=== PATIENT | male | born 1950 | race Caucasian/White ===

== ENCOUNTER 2016-09-24 07:38 | Day surgery (SDC) | payer MEDICARE, BC ==
[2016-09-24] MEDS ORDERED: Sodium Chloride 0.9% 10 ML Syringe FLUSH PRN (07:45)
[2016-09-24] MEDS ORDERED: Lactated Ringers 1,000 ML IV SCH (07:45)
[2016-09-24] MEDS ORDERED: Propofol 200 MG/20 ML SDV IV ONE (09:00)
[2016-09-24] MEDS ORDERED: Midazolam 1 MG/ML 2 ML SDV IV ONE (09:00)
[2016-09-24] MEDS ORDERED: Simethicone Drops 40 MG/0.6 ML 30 ML Bottle ONE (09:29)
--- NOTE | 2016-09-24 10:00 | PCM.OPNOTE ---
- General Post-Op/Procedure Note Date of Surgery/Procedure: 09/24/16 Operative Procedure(s): c scope with bx Findings: transverse colon polyp descending colon polyp x3 sigmoid polyp diverticulosis Pre Op Diagnosis: screening Post-Op Diagnosis: transverse colon polyp. descending colon polyp x3. sigmoid polyp. diverticulosis Anesthesia Technique: MAC Primary Surgeon: Karsten Wihte Anesthesia Provider: Magalis Stone Pathology: transverse colon polyp descending colon polyp x3 sigmoid polyp Complications: None Condition: Good Free Text/Narrative:: see dictation
[2016-09-24 11:23] VITALS: BP 107/67
--- NOTE | 2016-09-24 22:41 | OR ---
DATE OF OPERATION: 09/24/2016 SURGEON: Karsten White MD PROCEDURE PERFORMED: Colonoscopy with hot loop and cold forceps biopsy. PREOPERATIVE DIAGNOSIS: Screening colonoscopy for colon cancer. POSTOPERATIVE DIAGNOSES: As follows; Sigmoid diverticulosis and descending colon diverticulosis, mild proximal transverse colon polyp, descending colon polyp x3, and sigmoid colon polyp. INDICATIONS FOR PROCEDURE: This is a 66-year-old white male, who presents for screening colonoscopy. He was offered and accepted same. DESCRIPTION OF OPERATION: After an excellent IV sedation was administered, digital rectal exam was performed. No marked abnormality was noted. The flexible colonoscope was inserted and advanced to the cecum. The prep was marginal. We were able to irrigate most of the liquid bile stained area, but this in addition to colonic spasm did hinder the evaluation. Following findings were noted. The ascending colon appeared unremarkable. Transverse colon and the proximal transverse colon, a pedunculated polyp biopsied with a hot loop snare and retrieved. Descending colon, three small polypoid lesions were noted within 10 cm of each other, they were biopsied with cold loop snare and submitted in a single container. There were also occasional diverticula. Sigmoid colon, a small polyp biopsied with cold forceps biopsy and submitted for examination. There were also occasional diverticula. Rectum, unremarkable. The colon was deflated. The scope was removed. The patient tolerated the procedure well and was taken to recovery room in good condition. /[id number] /MODL
== END 2016-09-24 11:06 | disposition home or self-care (01) ==
LOC: FB.SDS 07:38
PROVIDERS: ATTEND Surgery
DX: Z12.11 Encounter for screening for malignant neoplasm of colon (principal); D12.3 Benign neoplasm of transverse colon; D12.4 Benign neoplasm of descending colon; D12.5 Benign neoplasm of sigmoid colon; K57.30 Diverticulosis of large intestine without perforation or abscess without bleeding; E11.22 Type 2 diabetes mellitus with diabetic chronic kidney disease; I12.9 Hypertensive chronic kidney disease with stage 1 through stage 4 chronic kidney disease, or unspecified chronic kidney disease; N18.9 Chronic kidney disease, unspecified; E66.9 Obesity, unspecified; Z98.890 Other specified postprocedural states; Z87.891 Personal history of nicotine dependence; Z79.84 Long term (current) use of oral hypoglycemic drugs; Z79.899 Other long term (current) drug therapy; Z79.82 Long term (current) use of aspirin; Z98.52 Vasectomy status; Z68.42 Body mass index [BMI] 45.0-49.9, adult
CPT/HCPCS: 00810; 45380; 45385; 82962; 88305; A9270; J2250; J2704; J7120

== ENCOUNTER 2016-12-22 12:35 | Emergency (ER) | payer MEDICARE, BC ==
[2016-12-22 12:53] VITALS: BP 160/93
--- NOTE | 2016-12-22 13:17 | EDM.PDOC ---
ED HPI GENERAL MEDICAL PROBLEM - General Chief Complaint: Respiratory Problem Stated Complaint: SOB Time Seen by Provider: 12/22/16 13:00 Source of Information: Reports: Patient History Limitations: Reports: No Limitations - History of Present Illness INITIAL COMMENTS - FREE TEXT/NARRATIVE: Fransisco comes to [facility] ED with a 2 mos hx of gradual 16# weight gain, some apparent swelling in R leg, and concerns for a possible DVT of the R leg. He reports no hx of chest pain, jagjit SOB, SALAS, PND or PNA. He takes Metformin for Type II DM, and other meds for hyperuricemia. He also has a PMH of BRB from wiping post BMs, and was investigated at the Clinic including colonoscopy, hemorrhoids suspected. He desires plane travel later this afternoon. - Related Data Allergies Allergy/AdvReac Type Severity Reaction Status Date / Time No Known Allergies Allergy Verified 12/22/16 12:49 Home Meds: Home Meds Allopurinol [Zyloprim] 300 mg PO DAILY 11/07/15 [History] Aspirin 325 mg PO DAILY 11/07/15 [History] Chlorthalidone 50 mg PO DAILY 11/07/15 [History] Cyclobenzaprine [Flexeril] 10 mg PO TID PRN 11/07/15 [History] Hydrocodone/Acetaminophen [Hydrocodon-Acetaminophen 5-325] 1 - 2 tab PO Q6H PRN 11/07/15 [History] Lisinopril 20 mg PO DAILY 11/07/15 [History] Lovastatin 20 mg PO BEDTIME 11/07/15 [History] Tamsulosin [Flomax] 0.4 mg PO BEDTIME 11/07/15 [History] metFORMIN [Glucophage] 1,000 mg PO BIDMEALS 11/07/15 [History] Dapagliflozin Propanediol [Farxiga] 10 mg PO DAILY 09/23/16 [History] Past Medical History HEENT History: Reports: Other (See Below) Other HEENT History: TINNITUS BILAT EARS Cardiovascular History: Reports: Hypertension Respiratory History: Reports: None Gastrointestinal History: Reports: Diverticulosis Genitourinary History: Reports: Renal Calculus, Renal Disease, Other (See Below) Other Genitourinary History: GROSS HEMATURIA; INFLAMMATION OF [employer] History: Reports: None Musculoskeletal History: Reports: Back Pain, Chronic, Gout, Other (See Below) Other Musculoskeletal History: GREATER TROCHANTERIC BURSITIS-RIGHT HIP; DJD Neurological History: Reports: Neuropathy, Peripheral Psychiatric History: Reports: None Endocrine/Metabolic History: Reports: Diabetes, Type II, Obesity/BMI 30+ Hematologic History: Reports: Anemia Immunologic History: Reports: None Oncologic (Cancer) History: Reports: None Dermatologic History: Reports: Cellulitis, Eczema - Infectious Disease History Infectious Disease History: Reports: Chicken Pox, Measles, Mumps - Past Surgical History Head Surgeries/Procedures: Reports: None HEENT Surgical History: Reports: Adenoidectomy, Tonsillectomy GI Surgical History: Reports: Colonoscopy, Other (See Below) Other GI Surgeries/Procedures: FISSURECTOMY WO SPHINCTEROTOMY Male Surgical History: Reports: Renal Calculus, TURBT-Transurethral Resection of Bladder Tumor, Vasectomy Neurological Surgical History: Reports: Other (See Below) Other Neurological Surgeries/Procedures: BACK SURGERY; SPINE SURGERY-HERNIATED DISC Social & Family History - Family History HEENT: Reports: Cataract Cardiac: Reports: [place] OBGYN: Reports: Musculoskeletal: Reports: Arthritis Neurological: Reports: Dementia Endocrine/Metabolic: Reports: Diabetes, type II, Hypothyroidism Dermatologic: Reports: None Oncologic: Reports: Bone, Breast, Colon, Hodgkin's Lymphoma, Lung - Tobacco Use Smoking Status *Q: Former Smoker Used Tobacco, but Quit: Yes Month Tobacco Last Used: quit 8 years ago - Caffeine Use Caffeine Use: Reports: Coffee, Soda - Recreational Drug Use Recreational Drug Use: No Drug Use in Last 12 Months: No ED ROS GENERAL - Review of Systems Review Of Systems: See Below Constitutional: Reports: Weight Gain (16#) HEENT: Reports: No Symptoms Respiratory: Reports: No Symptoms Cardiovascular: Reports: No Symptoms Endocrine: Reports: No Symptoms GI/Abdominal: Reports: Hematochezia : Reports: Other (nocturia x 3) Musculoskeletal: Reports: Back Pain (chronic) Skin: Reports: Other (edema R>L) Neurological: Reports: No Symptoms Psychiatric: Reports: No Symptoms Hematologic/Lymphatic: Reports: Anemia Immunologic: Reports: No Symptoms ED EXAM, GENERAL - Physical Exam Exam: See Below Exam Limited By: No Limitations General Appearance: Alert, WD/WN, No Apparent Distress, Obese Eye Exam: Bilateral Eye: Normal Inspection, PERRL Ears: Normal External Exam Nose: Normal Inspection Throat/Mouth: Normal Inspection, Normal Oropharynx Head: Normocephalic Neck: Normal Inspection, Supple, Non-Tender Respiratory/Chest: No Respiratory Distress, Lungs Clear, Normal Breath Sounds, No Accessory Muscle Use, Chest Non-Tender Cardiovascular: Regular Rate, Rhythm, Other (edema brawny R leg, 2+ L lower foot and ankle) GI/Abdominal: Normal Bowel Sounds, Soft, Non-Tender, No Organomegaly, No Distention, No Abnormal Bruit, No Mass (Male) Exam: No Hernia, Normal Inspection Back Exam: Normal Inspection Extremities: Pedal Edema, Redness (mild reddness R lower leg) Neurological: Alert, Oriented, CN II-XII Intact, Normal Cognition Psychiatric: Normal Affect, Normal Mood Skin Exam: Warm, Dry, Erythema (mild overlying R lower leg) Lymphatic: No Adenopathy Course - Vital Signs Text/Narrative:: Fransisco remained stable at the [facility] ED. No meds were dispensed. His dopplar venous US noted a solitary enlarged lymph node in the groin, no DVT apparent. The CBC noted Hgb 10.8 gm, WBC 3,400, plts 88,000. His CMP noted nonFBS 136 mg% . His BNP 241 U. There were mild elevations of LFTs, possible fatty liver. There is chronic edema R>L in both legs, morbid obesity, but no findings for CHF or renal impairment. He would benefit from a bariatric evaluation. 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 Last Recorded V/S: Last Vital Signs Temp 36.6 C 12/22/16 12:50 Pulse 88 12/22/16 12:50 Resp 18 12/22/16 12:50 BP 160/93 H 12/22/16 12:50 Pulse Ox 98 12/22/16 12:50 - Orders/Labs/Meds Orders: Active Orders 24 hr Category Date Time Status VL Duplex Lwr Ext Veins Ltd Rt [US] Stat Exams 12/22/16 13:07 Ordered EKG 12 Lead [EK] Routine Ther 12/22/16 13:11 Ordered Labs: Laboratory Tests 12/22/16 12/22/16 12/22/16 Range/Units 13:30 13:30 13:30 WBC 3.4 L (4.5-12.0) X10-3/uL RBC 3.32 L (4.30-5.75) x10(6)uL Hgb 10.8 L (11.5-15.5) g/dL Hct 32.3 (30.0-51.3) % MCV 97.3 H (80-96) fL MCH 32.4 (27.7-33.6) pg MCHC 33.3 (32.2-35.4) g/dL RDW 15.2 (11.5-15.5) % Plt Count 88 L (125-369) X10(3)uL MPV 11.2 H (7.4-10.4) fL Neutrophils % (Manual) 64 (46-82) % Lymphocytes % (Manual) 23 (13-37) % Monocytes % (Manual) 11 (4-12) % Eosinophils % (Manual) 2 (0-5) % Sodium 138 (135-145) mmol/L Potassium 3.9 (3.5-5.3) mmol/L Chloride 106 D (100-110) mmol/L Carbon Dioxide 26 (23-29) mmol/L BUN 15 D (8-23) mg/dL Creatinine 0.7 (0.6-1.3) mg/dL Est Cr Clr Drug Dosing 117.31 mL/min Estimated GFR (MDRD) > 60 (>60) BUN/Creatinine Ratio 21.4 H (9-20) Glucose 136 H D (80-116) mg/dL Uric Acid 3.1 (3.0-7.0) mg/dL Calcium 8.7 (8.6-10.2) mg/dL Total Bilirubin 1.1 (0.1-1.3) mg/dL AST 36 H D (5-27) IU/L ALT 18 D (14-26) IU/L Alkaline Phosphatase 71 (56-112) IU/L B-Natriuretic Peptide 241 H (0-100) pg/mL Total Protein 7.2 (6.0-8.0) g/dL Albumin 3.4 (3.2-4.6) g/dL Globulin 3.8 g/dL Albumin/Globulin Ratio 0.9 Departure - Departure Time of Disposition: 14:31 Disposition: Home, Self-Care 01 Condition: Fair Clinical Impression: Edema of both legs - Discharge Information Referrals: Fransisco Johnson MD [Primary Care Provider] - Forms: ED Department Discharge - Problem List & Annotations (1) Edema of both legs SNOMED Code(s): 363267246 Code(s): R60.0 - LOCALIZED EDEMA Status: Acute Current Visit: Yes Annotation/Comment:: Chronic edema of both legs in the context of morbid obesity. He would benefit from bariatric assessment and edema control, deferred to PCP for guidance. No meds dispensed. - Problem List Review Problem List Initiated/Reviewed/Updated: Yes - My Orders Last 24 Hours: My Active Orders 12/22/16 13:07 VL Duplex Lwr Ext Veins Ltd Rt [US] Stat 12/22/16 13:11 EKG 12 Lead [EK] Routine - Assessment/Plan Last 24 Hours: My Active Orders 12/22/16 13:07 VL Duplex Lwr Ext Veins Ltd Rt [US] Stat 12/22/16 13:11 EKG 12 Lead [EK] Routine Plan: Follow up with PCP.
--- NOTE | 2016-12-22 15:38 | US ---
INDICATION: Edema, history of infection, question DVT. DUPLEX ULTRASOUND, RIGHT LOWER EXTREMITY VEINS: Utilizing 2-D real time, duplex Doppler spectral analysis, and color flow imaging, examination of the right lower extremity deep veins and the cephalad upper third of the greater saphenous vein, revealed normal compression and findings compatible with valvular competence. No evidence of deep venous thrombosis is seen. No evidence of SVT is seen. A lymph node is noted in the right groin, measuring approximately 3.5 x 1.3 cm. IMPRESSION: 1. No evidence of DVT or SVT. 2. Enlarged lymph node in the right groin. MTDD
== END 2016-12-22 14:35 | disposition home or self-care (01) ==
LOC: FB.ED 12:35
DX: R60.0 Localized edema (principal); Z79.82 Long term (current) use of aspirin; Z79.899 Other long term (current) drug therapy; Z87.891 Personal history of nicotine dependence
CPT/HCPCS: 36415; 80053; 83880; 84550; 85025; 93005; 93971-RT; 99284; 99285

== ENCOUNTER 2018-09-27 13:03 | Day surgery (SDC) | payer MEDICARE, BC ==
[2018-09-27] MEDS ORDERED: Sodium Chloride 0.9% 10 ML Syringe FLUSH PRN (14:34)
[2018-09-27] MEDS ORDERED: CARBOXYMETHYLCELLULOSE SODIUM EYELF PRN (14:38)
[2018-09-27] MEDS ORDERED: traMADol 50 MG Tab PO PRN ×2 (14:38→15:07)
[2018-09-27] MEDS ORDERED: Acetaminophen/HYDROcodone 325-5 MG Tab PO PRN (14:38)
[2018-09-27] MEDS ORDERED: Polyethylene Glycol/Electrolytes 4,000 ML Bottle PO ONE (14:38)
[2018-09-27] MEDS: Non-Formulary Medication 1 Each (Gabapentin [Neurontin] 300 MG) PO SCH ×2 (15:30→20:23)
[2018-09-27] MEDS: NEOMYCIN EYELF SCH (20:21)
[2018-09-27] MEDS: [UNRECOGNIZED DRUG - OTHER] EYELF SCH (20:21)
[2018-09-27] MEDS: DEXAMETHASONE EYELF SCH (20:21)
[2018-09-27] MEDS: POLYMYXIN B EYELF SCH (20:21)
[2018-09-27] MEDS ORDERED: LOVASTATIN 20 MG PO SCH (21:00)
[2018-09-27] MEDS ORDERED: Acetaminophen 325 MG Tab PO PRN (21:00)
[2018-09-28] MEDS ORDERED: Lidocaine 1% PF 2 ML SDV INJECT ONE (08:00)
[2018-09-28] MEDS ORDERED: Propofol 200 MG/20 ML SDV IV ONE (08:00)
[2018-09-28] MEDS ORDERED: Simethicone Drops 40 MG/0.6 ML 30 ML Bottle ONE (08:30)
[2018-09-28] MEDS ORDERED: Non-Formulary Medication 1 Each (Allopurinol [Zyloprim] 300 MG) PO SCH (09:00)
--- NOTE | 2018-09-28 09:29 | PCM.OPNOTE ---
- General Post-Op/Procedure Note Date of Surgery/Procedure: 09/28/18 Operative Procedure(s): 1. c scope with bx. 2. hemorrhoid banding. 3. debredment of decubitus ulcer Findings: 1. descending colon polyp 2. bleeding internal hemorrhoids. 3. decubitus ulcer horseshoe shaped 3 x 6 on each leg eschar leg side 2 x3 cm, apex 1x1 cm. right leg 1.5 x 2 cm 4.wound right thigh 1 cm Pre Op Diagnosis: bleeding per rectum. hx of polyps. hx of decubitus ulcer Post-Op Diagnosis: colon polyp. bleeing hemorrhoid. ducubitus ulce stage 1 Anesthesia Technique: MAC Primary Surgeon: Karsten White Anesthesia Provider: Fransisco Russ Pathology: colon polyp Condition: Good Free Text/Narrative:: Intake & Output 09/27/18 09/28/18 09/28/18 22:59 06:59 14:59 Output Total 800 1978 Balance -[phone] see dictation
[2018-09-28] MEDS ORDERED: Sodium Chloride 0.9% 250 ML IV SCH (09:30)
[2018-09-28] MEDS: POLYMYXIN B EYELF SCH (10:30)
[2018-09-28] MEDS: DEXAMETHASONE EYELF SCH (10:30)
[2018-09-28] MEDS: Non-Formulary Medication 1 Each (Gabapentin [Neurontin] 300 MG) PO SCH ×2 (10:30→14:48)
[2018-09-28] MEDS: [UNRECOGNIZED DRUG - OTHER] EYELF SCH (10:30)
[2018-09-28] MEDS: NEOMYCIN EYELF SCH (10:30)
--- NOTE | 2018-09-28 11:48 | OR ---
DATE OF OPERATION: 09/28/2018 SURGEON: Karsten White MD PROCEDURES PERFORMED: 1. Colonoscopy with cold forceps biopsy. 2. Banding of internal hemorrhoids. 3. Debridement of decubitus ulcer. PREOPERATIVE DIAGNOSES: History of hematochezia, colon polyps, as well as decubitus ulcer. POSTOPERATIVE DIAGNOSES: Descending colon polyp, bleeding internal hemorrhoids, and decubitus ulcer stage I. INDICATIONS FOR PROCEDURE: This is a 68-year-old white male who apparently has been having some issues with passage of clot and blood per rectum. He has a personal history of colon polyps. This started when he was hospitalized up in [place]. They did not work this up. He presented to me with these issues and was offered and accepted colonoscopy as well as banding. He does have some paralysis secondary to some cervical spine surgery, he is wheelchair-bound, and his also notes some wounds in the sacral area and these were to be evaluated and treated at the same time. DESCRIPTION OF OPERATION: After an excellent IV sedation was administered, digital rectal exam was performed and decubitus ulcer was noted. This will be discussed further. Colonoscope was inserted, advanced to cecum. Prep was excellent. The following findings were noted. Ascending colon, unremarkable. Transverse colon, unremarkable. Descending colon, small polypoid lesion, biopsied with cold biopsy forceps and sent for permanent. Sigmoid and rectum, unremarkable. The anal speculum was then inserted. The patient had two major columns that appeared to be the issue. The right anterior column and the left lateral column. These were both treated with banding. The speculum was then removed. Our attention was then turned to the decubitus ulcer which basically was roughly an inverted V shape, roughly 3 cm x 6 cm on each edge. The photos were taken along with a ruler. On the bottom of the left leg, there was a 2 x 3 cm area of eschar that was debrided. This just involved the skin and it was not full thickness through the skin. The right leg had a 1.5 x 2 cm ulcer, which was also sharply debrided with scissors, and then at the apex of the V, there was a 1 x 1 cm decubitus, which was also debrided. Aquacel was then placed on these wounds and a DuoDerm was placed over the entire area in several strips and we will be progressing with that. In addition, there was a small ulcer in his left buttock crease with the thigh. This had a small piece of Aquacel as well as a DuoDerm placed over that as well. The patient tolerated the procedure well and was taken to recovery room in good condition. /[id number] /MODL
[2018-09-28 12:15] VITALS: PULSE 85
[2018-09-28] MEDS ORDERED: Lactated Ringers 1,000 ML IV ONE (16:39)
[2018-09-28 21:25] VITALS: BP 133/81
--- NOTE | 2018-10-04 10:06 | PCM.SN ---
- Free Text/Narrative Note: At the time of admission there were no changes to the h+p
== END 2018-09-28 16:40 ==
LOC: FB.SDS 13:03 → UNDOADMOB 13:03 → FB.MS 13:03 → EDSTATUS 09-28 08:00 → UNDODISOB 09-28 16:40 → FB.SDS 09-28 16:40
PROVIDERS: ATTEND Surgery
DX: D12.4 Benign neoplasm of descending colon (principal); K64.8 Other hemorrhoids; L89.899 Pressure ulcer of other site, unspecified stage; L89.329 Pressure ulcer of left buttock, unspecified stage; L89.159 Pressure ulcer of sacral region, unspecified stage; I10 Essential (primary) hypertension; E11.42 Type 2 diabetes mellitus with diabetic polyneuropathy; E78.00 Pure hypercholesterolemia, unspecified; D64.9 Anemia, unspecified; G82.50 Quadriplegia, unspecified; M10.9 Gout, unspecified; M19.90 Unspecified osteoarthritis, unspecified site; E66.01 Morbid (severe) obesity due to excess calories; Z86.010 Personal history of colon polyps; Z87.891 Personal history of nicotine dependence; Z79.84 Long term (current) use of oral hypoglycemic drugs; Z79.899 Other long term (current) drug therapy
CPT/HCPCS: 00142; 36415; 36430; 45380; 46946; 85025; 86850; 86900; 86901; 86920; 86922; 88305; 97597; A9270; J2001; J2704; J7050; J7120; P9016

== ENCOUNTER 2019-01-11 09:00 | Inpatient (IN) | payer MEDICARE, BC ==
[2019-01-11] MEDS ORDERED: guaiFENesin 600 MG Tab.ER PO PRN (13:34)
[2019-01-11] MEDS ORDERED: Meropenem 1 GM SDV IV SCH (13:45)
[2019-01-11] MEDS ORDERED: Triamcinolone Acetonide 0.1% Crm 80 GM Tube TOP SCH (14:00)
[2019-01-11] MEDS: Gabapentin 300 MG Cap PO SCH ×2 (14:52→20:58)
[2019-01-11] MEDS: Meropenem 1 GM in Sodium Chloride 0.9% 100 ML IV SCH (16:48)
[2019-01-11] MEDS: Sodium Chloride 0.9% 10 ML Syringe FLUSH PRN (17:22)
--- NOTE | 2019-01-11 18:02 | PCM.HP.2 ---
H&P History of Present Illness - General Date of Service: 01/11/19 Admit Problem/Dx: Admission Diagnosis/Problem Admission Diagnosis/Problem Osteomyelitis of vertebra Source of Information: Patient, Family History Limitations: Reports: No Limitations - History of Present Illness Initial Comments - Free Text/Narative: This is a 68 old male patient was quadriplegic secondary to spinal cord injury after surgery of his neck. He is transferred down for [place] for sacral osteo- myelitis and amado-sacral wound for wound care and meropenem. Apparently had ESBL infection. When he was in [place] there is a colostomy to cleanup the wound area and place a wound VAC. Have it up for today and will start tomorrow. He has no other concerns. Had a fever in the hospital but that's better now. He denies a chest pain, shortness of breath or blood in the stool. - Related Data Allergies/Adverse Reactions: Allergies Allergy/AdvReac Type Severity Reaction Status Date / Time No Known Allergies Allergy Verified 10/15/18 15:47 Home Medications: Home Meds Allopurinol [Zyloprim] 300 mg PO DAILY 11/07/15 [History] Lovastatin 20 mg PO BEDTIME 11/07/15 [History] metFORMIN [Glucophage] 500 mg PO DAILY 11/07/15 [History] Acetaminophen 650 mg PO TID 09/27/18 [History] Acetaminophen/Diphenhydramine [Tylenol Pm Ex-Strength Caplet] 2 each PO BEDTIME 09/27/18 [History] Ascorbic Acid [Vitamin C] 1,000 mg PO DAILY 09/27/18 [History] Carboxymethylcellulose Sodium [Refresh Tears] 1 drop EYELF Q2H PRN 09/27/18 [ History] Cholecalciferol (Vitamin D3) [Vitamin D3] 4,000 unit PO DAILY 09/27/18 [History] Ferrous Gluconate 324 mg PO BID 09/27/18 [History] Gabapentin [Neurontin] 300 mg PO TID 09/27/18 [History] Hydrocortisone [Proctosol-HC] 1 applic RC BID 09/27/18 [History] Lactobacill 46/B.animal/Inulin [Probiotic-10 10 Bill Cell Cap] 1 each PO DAILY 09/27/18 [History] Sennosides/Docusate Sodium [Senna-S] 1 each PO BEDTIME PRN 09/27/18 [History] Silver Sulfadiazine [Silvadene 1% Cream 20 GM] 1 applic TOP BID 09/27/18 [ History] Triamcinolone Acetonide [Kenalog 0.1% Crm] 1 applic TOP TID 09/27/18 [History] Zinc Gluconate [Zinc] 50 mg PO DAILY 09/27/18 [History] traMADol [Ultram] 50 mg PO QID PRN 09/27/18 [History] Acetaminophen/HYDROcodone [[place] 325-7.5 MG] 1 tab PO Q4H PRN 01/11/19 [History] Acetic Acid [Acetic Acid 0.25%] 5 ml TOP BID 01/11/19 [History] Cranberry Conc/Ascorbic Acid [Cranberry Concentrate Softgel] 1 cap PO DAILY 07/25 [History] Enoxaparin Sodium [Lovenox] 40 mg SUBCUT DAILY 01/11/19 [History] Heparin Sodium,Porcine/PF [Heparin Lock Flush 100 Unit/ml] 300 units FLUSH ASDIRECTED 01/11/19 [History] Meropenem 1 gm IV Q8H 01/11/19 [History] Multivitamin with Minerals [Multivitamins with Minerals] 1 tab PO DAILY [History] Sodium Chloride 0.9% [Saline Flush] 10 ml FLUSH ASDIRECTED PRN 01/11/19 [History ] guaiFENesin [Mucinex] 600 mg PO BID PRN 01/11/19 [History] Past Medical History HEENT History: Reports: Other (See Below) Other HEENT History: TINNITUS BILAT EARS Cardiovascular History: Reports: High Cholesterol, Hypertension Respiratory History: Reports: None Gastrointestinal History: Reports: Diverticulosis, GI Bleed Genitourinary History: Reports: Renal Calculus, Renal Disease, Other (See Below) Other Genitourinary History: GROSS HEMATURIA; INFLAMMATION OF [employer]ICIAN History: Reports: None Musculoskeletal History: Reports: Back Pain, Chronic, Gout, Other (See Below) Other Musculoskeletal History: GREATER TROCHANTERIC BURSITIS-RIGHT HIP; DJD, Quadriplegic Neurological History: Reports: Neuropathy, Peripheral Psychiatric History: Reports: None Endocrine/Metabolic History: Reports: Diabetes, Type II, Obesity/BMI 30+ Hematologic History: Reports: Anemia Immunologic History: Reports: None Oncologic (Cancer) History: Reports: None Dermatologic History: Reports: Cellulitis, Eczema - Infectious Disease History Infectious Disease History: Reports: Chicken Pox, Measles, Mumps - Past Surgical History Head Surgeries/Procedures: Reports: None HEENT Surgical History: Reports: Adenoidectomy, Tonsillectomy Cardiovascular Surgical History: Reports: None GI Surgical History: Reports: Colonoscopy, Other (See Below) Other GI Surgeries/Procedures: FISSURECTOMY WO SPHINCTEROTOMY Male Surgical History: Reports: Renal Calculus, TURBT-Transurethral Resection of Bladder Tumor, Vasectomy Neurological Surgical History: Reports: Other (See Below) Other Neurological Surgeries/Procedures: BACK SURGERY; SPINE SURGERY-HERNIATED DISC Social & Family History - Family History Family Medical History: Noncontributory HEENT: Reports: Cataract Cardiac: Reports: [place] OBGYN: Reports: Musculoskeletal: Reports: Arthritis Neurological: Reports: Dementia Endocrine/Metabolic: Reports: Diabetes, type II, Hypothyroidism Dermatologic: Reports: None Oncologic: Reports: Bone, Breast, Colon, Hodgkin's Lymphoma, Lung - Tobacco Use Smoking Status *Q: Former Smoker Years of Tobacco use: 40 Used Tobacco, but Quit: Yes Month/Year Tobacco Last Used: 2008 - Caffeine Use Caffeine Use: Reports: Coffee, Tea Other Caffeine Use: coffee- everyday - Recreational Drug Use Recreational Drug Use: No H&P Review of Systems - Review of Systems: Review Of Systems: See Below General: Reports: No Symptoms HEENT: Reports: No Symptoms Pulmonary: Reports: No Symptoms, Cough Gastrointestinal: Denies: Abdominal Pain, Black Stool Genitourinary: Reports: Other (Suprapubic catheter) Musculoskeletal: Reports: No Symptoms Skin: Reports: Other (See History of present illness) Psychiatric: Reports: No Symptoms Neurological: Reports: Numbness, Other (Paraplegic) Hematologic/Lymphatic: Reports: No Symptoms Immunologic: Reports: No Symptoms Exam - Exam Exam: See Below - Vital Signs Vital Signs: Last Vital Signs Temp 98 F 01/11/19 13:25 Pulse 81 01/11/19 13:25 Resp 18 01/11/19 13:25 BP 128/81 01/11/19 13:25 Pulse Ox 98 01/11/19 13:25 - Exam General: Alert, Oriented, Cooperative HEENT: Hearing Intact, Mucosa Moist & [place], Posterior Pharynx Clear, TMs Clear Neck: Supple, Trachea Midline Lungs: Clear to Auscultation, Normal Respiratory Effort Cardiovascular: Regular Rate, Regular Rhythm. No: Systolic Murmur GI/Abdominal Exam: Normal Bowel Sounds, Soft, Non-Tender, No Distention, Other ( Colostomy left side) Extremities: Non-Tender, No Pedal Edema Skin: Other (She does wheelchair not able to visualize the wound. It was visualized today but surgeon.) Neurological: Other (Paraplegia) Neuro Extensive - Mental Status: Alert, Oriented x3, Normal Mood/Affect, Normal Cognition, Memory Intact Psychiatric: Alert, Normal Affect, Normal Mood - Patient Data Lab Results Last 24 hrs: Laboratory Results - last 24 hr 01/11/19 Range/Units 16:55 POC Glucose 293 H (80-116) mg/dL - Problem List (1) Wound cellulitis SNOMED Code(s): 816766573 ICD Code: L03.90 - CELLULITIS, UNSPECIFIED Status: Acute Current Visit: Yes (2) Osteomyelitis SNOMED Code(s): 95354557 ICD Code: M86.9 - OSTEOMYELITIS, UNSPECIFIED Status: Acute Current Visit : Yes (3) Paraplegic gait SNOMED Code(s): 512669821 ICD Code: R26.1 - PARALYTIC GAIT Status: Acute Current Visit: Yes (4) Colostomy care SNOMED Code(s): 088812153, 880548205 ICD Code: Z43.3 - ENCOUNTER FOR ATTENTION TO COLOSTOMY Status: Acute Current Visit: Yes (5) Suprapubic catheter SNOMED Code(s): 976718136, 371043086 ICD Code: Z93.59 - OTHER CYSTOSTOMY STATUS Status: Acute Current Visit: Yes Problem List Initiated/Reviewed/Updated: Yes Orders Last 24hrs: Active Orders 24 hr Category Date Time Status Patient Status [ADT] Routine ADT 01/11/19 13:29 Active Blood Glucose Check, Bedside [RC] BIDMEALS Care 01/11/19 13:29 Active Communication Order [RC] DAILY Care 01/11/19 14:55 Active Height and Weight [RC] WEEKLY Care 01/11/19 13:29 Active Ostomy Assessment [RC] QSHIFT Care 01/11/19 14:40 Active Oxygen Therapy [RC] PRN Care 01/11/19 13:29 Active Up to Chair [RC] ASDIRECTED Care 01/11/19 13:29 Active VTE/DVT Education [RC] DAILY Care 01/11/19 13:29 Active Vital Signs [RC] 08 Care 01/11/19 13:29 Active Consistent Carbohydrate Diet [DIET] Diet 01/11/19 Dinner Active ALANINE AMINOTRANSFERASE,ALT [CHEM] WEEKLY Lab 01/17/19 06:00 Ordered ALANINE AMINOTRANSFERASE,ALT [CHEM] WEEKLY Lab 01/24/19 06:00 Ordered ALANINE AMINOTRANSFERASE,ALT [CHEM] WEEKLY Lab 01/31/19 06:00 Ordered ALANINE AMINOTRANSFERASE,ALT [CHEM] WEEKLY Lab 02/07/19 06:00 Ordered ALANINE AMINOTRANSFERASE,ALT [CHEM] WEEKLY Lab 02/14/19 06:00 Ordered ALANINE AMINOTRANSFERASE,ALT [CHEM] WEEKLY Lab 02/21/19 06:00 Ordered CBC WITH AUTO DIFF [HEME] WEEKLY Lab 01/17/19 06:00 Ordered CBC WITH AUTO DIFF [HEME] WEEKLY Lab 01/24/19 06:00 Ordered CBC WITH AUTO DIFF [HEME] WEEKLY Lab 01/31/19 06:00 Ordered CBC WITH AUTO DIFF [HEME] WEEKLY Lab 02/07/19 06:00 Ordered CBC WITH AUTO DIFF [HEME] WEEKLY Lab 02/14/19 06:00 Ordered CBC WITH AUTO DIFF [HEME] WEEKLY Lab 02/21/19 06:00 Ordered CREATININE W/GFR [CHEM] WEEKLY Lab 01/17/19 06:00 Ordered CREATININE W/GFR [CHEM] WEEKLY Lab 01/24/19 06:00 Ordered CREATININE W/GFR [CHEM] WEEKLY Lab 01/31/19 06:00 Ordered CREATININE W/GFR [CHEM] WEEKLY Lab 02/07/19 06:00 Ordered CREATININE W/GFR [CHEM] WEEKLY Lab 02/14/19 06:00 Ordered CREATININE W/GFR [CHEM] WEEKLY Lab 02/21/19 06:00 Ordered Acetaminophen [Tylenol] Med 01/11/19 14:00 Active 650 mg PO TID PRN Acetaminophen/Diphenhydramine [Tylenol PM Extra Med 01/11/19 21:00 Active Strength] 2 tab PO BEDTIME Acetaminophen/HYDROcodone [[place] 325-7.5 MG] Med 01/11/19 13:34 Active 1 tab PO Q4H PRN Acetic Acid [Acetic Acid 0.25%] Med 01/11/19 21:00 Active 1,000 ml IRR BID Allopurinol [Zyloprim] Med 01/12/19 09:00 Active 300 mg PO DAILY Ascorbic Acid [Vitamin C] Med 01/12/19 09:00 Active 1,000 mg PO DAILY Carboxymethylcellulose Sodium [Refresh Tears 0.5%] Med 01/11/19 13:34 Active 0 ml EYELF Q2H PRN Cholecalciferol (Vitamin D3) [Vitamin D3] Med 01/12/19 09:00 Active 100 mcg PO DAILY Cranberry Med 01/12/19 09:00 Active 500 mg PO DAILY Docusate Sodium/Sennosides [Senna Plus] Med 01/11/19 13:34 Active 1 tab PO BEDTIME PRN Enoxaparin [Lovenox] Med 01/12/19 09:00 Active 40 mg SUBCUT DAILY Ferrous Sulfate Med 01/11/19 21:00 Active 325 mg PO BID Gabapentin [Neurontin] Med 01/11/19 14:00 Active 300 mg PO TID Heparin Sodium [Heparin Lock Flush 100 Units/ML] Med 01/11/19 16:30 Active 300 units FLUSH Q8H Lovastatin [Mevacor] Med 01/11/19 21:00 Active 20 mg PO BEDTIME Meropenem [Merrem] 1 gm Med 01/11/19 16:00 Active Sodium Chloride 0.9% [Normal Saline] 100 ml IV Q8H Multivitamins,Therapeutic [Thera] Med 01/12/19 09:00 Active 1 each PO DAILY Saccharomyces Boulardii [Florastor] Med 01/12/19 09:00 Active 250 mg PO DAILY Sodium Chloride 0.9% [Saline Flush] Med 01/11/19 13:34 Active 10 ml FLUSH ASDIRECTED PRN Triamcinolone Acetonide [Triamcinolone Acetonide 0.1% Med 01/12/19 09:00 Active Crm] 0 gm TOP DAILY Triamcinolone Acetonide [Triamcinolone Acetonide 0.1% Med 01/11/19 15:23 Active Crm] 0 gm TOP DAILY PRN Zinc Sulfate [Zincate] Med 01/12/19 09:00 Active 220 mg PO DAILY guaiFENesin [Mucinex] Med 01/11/19 13:34 Active 600 mg PO BID PRN metFORMIN [Glucophage] Med 01/12/19 08:00 Active 500 mg PO WITHBREAKFAST traMADol [Ultram] Med 01/11/19 13:34 Active 50 mg PO QID PRN Precautions [COMM] Routine Oth 01/11/19 14:47 Ordered Suprapubic Catheter Management [OM.PC] Routine Oth 01/11/19 14:41 Ordered Wound Vac Management [OM.PC] Routine Oth 01/12/19 10:00 Ordered Resuscitation Status Routine Resus Stat 01/11/19 13:29 Ordered Medication Orders Acetaminophen (Tylenol) 650 mg PO TID PRN PRN Reason: mild pain Acetaminophen/Diphenhydramine HCl (Tylenol Pm Extra Strength) 2 tab PO BEDTIME [facility] Hydrocodone Bitart/Acetaminophen ([place] 325-7.5 Mg) 1 tab PO Q4H PRN PRN Reason: MODERATE PAIN Acetic Acid (Acetic Acid 0.25%) 1,000 ml IRR BID [facility] Stop: 01/11/19 21:01 Allopurinol (Zyloprim) 300 mg PO DAILY [facility] Artificial Tears (Refresh Tears 0.5%) 0 ml EYELF Q2H PRN PRN Reason: Dry Eyes Ascorbic Acid (Vitamin C) 1,000 mg PO DAILY [facility] Cholecalciferol (Vitamin D3) 100 mcg PO DAILY [facility] Cranberry (Cranberry) 500 mg PO DAILY [facility] Enoxaparin Sodium (Lovenox) 40 mg SUBCUT DAILY [facility] Stop: 02/22/19 09:01 Ferrous Sulfate (Ferrous Sulfate) 325 mg PO BID [facility] Gabapentin (Neurontin) 300 mg PO TID [facility] Last Admin: 01/11/19 14:52 Dose: 300 mg Guaifenesin (Mucinex) 600 mg PO BID PRN PRN Reason: Cough Heparin Sodium (Porcine) (Heparin Lock Flush 100 Units/Ml) 300 units FLUSH Q8H [facility] Last Admin: 01/11/19 17:22 Dose: 300 units Meropenem 1 gm/ Sodium (Chloride) 100 mls @ 200 mls/hr IV Q8H [facility] Stop: 02/17/19 23:59 Last Admin: 01/11/19 16:48 Dose: 200 mls/hr Lovastatin (Mevacor) 20 mg PO BEDTIME [facility] Metformin HCl (Glucophage) 500 mg PO WITHBREAKFAST [facility] Multivitamins (Thera) 1 each PO DAILY [facility] Saccharomyces Boulardii (Florastor) 250 mg PO DAILY [facility] Senna/Docusate Sodium (Senna Plus) 1 tab PO BEDTIME PRN PRN Reason: Constipation Sodium Chloride (Saline Flush) 10 ml FLUSH ASDIRECTED PRN PRN Reason: FLUSH Last Admin: 01/11/19 17:22 Dose: 10 ml Tramadol HCl (Ultram) 50 mg PO QID PRN PRN Reason: SEVERE PAIN Triamcinolone Acetonide (Triamcinolone Acetonide 0.1% Crm) 0 gm TOP DAILY [facility] Triamcinolone Acetonide (Triamcinolone Acetonide 0.1% Crm) 0 gm TOP DAILY PRN PRN Reason: RASH Zinc Sulfate (Zincate) 220 mg PO DAILY [facility] Assessment/Plan Comment:: 1. Admit to swing bed for IV antibiotics. 2. Wound VAC and wound VAC care 3. Is on Lovenox for VTE prophylaxis 4. In better and is wheelchair 5. Restart his metformin check his Accu-Cheks twice a day and a diabetic diet. 6. Restart all the medications he was on and [place]. Reviewed today.
[2019-01-11] MEDS ORDERED: metFORMIN 500 MG Tab PO ONE (18:56)
[2019-01-11] MEDS: Ferrous Sulfate 325 MG Tab PO SCH (20:57)
[2019-01-11] MEDS: Acetaminophen/Diphenhydramine 500-25 MG Tab PO SCH (20:58)
[2019-01-11] MEDS ORDERED: Silver Sulfadiazine 1% Crm 400 GM Jar TOP SCH (21:00)
[2019-01-11] MEDS ORDERED: Acetic Acid 0.25% Solution 1,000 ML Bottle IRR SCH (21:00)
[2019-01-11] MEDS ORDERED: Hydrocortisone 2.5% Crm 30 GM Tube TOP PRN (21:00)
[2019-01-12] MEDS: Meropenem 1 GM in Sodium Chloride 0.9% 100 ML IV SCH ×4 (00:10→23:57)
[2019-01-12] MEDS: Sodium Chloride 0.9% 10 ML Syringe FLUSH PRN ×5 (00:13→23:56)
[2019-01-12] MEDS: metFORMIN 500 MG Tab PO SCH (08:12)
[2019-01-12] MEDS: Ferrous Sulfate 325 MG Tab PO SCH ×2 (10:08→21:04)
[2019-01-12] MEDS: Multivitamins,Therapeutic Tab PO SCH (10:08)
[2019-01-12] MEDS: Saccharomyces Boulardii (Probiotic) 250 MG Cap PO SCH (10:08)
[2019-01-12] MEDS: Cranberry 500 MG Cap PO SCH (10:08)
[2019-01-12] MEDS: Enoxaparin 40 MG/0.4 ML Syringe SUBCUT SCH (10:08)
[2019-01-12] MEDS: Cholecalciferol (Vitamin D3) 25 MCG Tab PO SCH (10:09)
[2019-01-12] MEDS: Ascorbic Acid 500 MG Tab PO SCH (10:09)
[2019-01-12] MEDS: Triamcinolone Acetonide 0.1% Crm 15 GM Tube TOP SCH (10:09)
[2019-01-12] MEDS: Allopurinol 300 MG Tab PO SCH (10:10)
[2019-01-12] MEDS: Zinc Sulfate 220 MG Cap PO SCH (10:10)
[2019-01-12] MEDS: Gabapentin 300 MG Cap PO SCH ×3 (10:16→21:10)
[2019-01-12] MEDS: Acetaminophen/Diphenhydramine 500-25 MG Tab PO SCH (21:05)
[2019-01-13] MEDS: metFORMIN 500 MG Tab PO SCH (08:10)
[2019-01-13] MEDS: Meropenem 1 GM in Sodium Chloride 0.9% 100 ML IV SCH ×2 (08:11→16:12)
[2019-01-13] MEDS: Sodium Chloride 0.9% 10 ML Syringe FLUSH PRN ×4 (08:12→16:52)
[2019-01-13] MEDS: Enoxaparin 40 MG/0.4 ML Syringe SUBCUT SCH (08:19)
[2019-01-13] MEDS: Cranberry 500 MG Cap PO SCH (08:20)
[2019-01-13] MEDS: Triamcinolone Acetonide 0.1% Crm 15 GM Tube TOP SCH (08:20)
[2019-01-13] MEDS: Saccharomyces Boulardii (Probiotic) 250 MG Cap PO SCH (08:20)
[2019-01-13] MEDS: Ferrous Sulfate 325 MG Tab PO SCH ×2 (08:20→20:41)
[2019-01-13] MEDS: Allopurinol 300 MG Tab PO SCH (08:21)
[2019-01-13] MEDS: Cholecalciferol (Vitamin D3) 25 MCG Tab PO SCH (08:21)
[2019-01-13] MEDS: Multivitamins,Therapeutic Tab PO SCH (08:21)
[2019-01-13] MEDS: Ascorbic Acid 500 MG Tab PO SCH (08:21)
[2019-01-13] MEDS: Zinc Sulfate 220 MG Cap PO SCH (08:21)
[2019-01-13] MEDS: Gabapentin 300 MG Cap PO SCH ×3 (08:25→20:41)
[2019-01-13] MEDS: BETA CAROTENE 25000 UNIT PO SCH (14:12)
[2019-01-13] MEDS: Acetaminophen/Diphenhydramine 500-25 MG Tab PO SCH (20:41)
[2019-01-14] MEDS: Meropenem 1 GM in Sodium Chloride 0.9% 100 ML IV SCH ×3 (00:05→16:00)
[2019-01-14] MEDS: Sodium Chloride 0.9% 10 ML Syringe FLUSH PRN ×4 (00:06→16:01)
[2019-01-14] MEDS: BETA CAROTENE 25000 UNIT PO SCH (08:17)
[2019-01-14] MEDS: Ferrous Sulfate 325 MG Tab PO SCH ×2 (08:17→20:47)
[2019-01-14] MEDS: Saccharomyces Boulardii (Probiotic) 250 MG Cap PO SCH (08:17)
[2019-01-14] MEDS: Cranberry 500 MG Cap PO SCH (08:17)
[2019-01-14] MEDS: metFORMIN 500 MG Tab PO SCH (08:17)
[2019-01-14] MEDS: Enoxaparin 40 MG/0.4 ML Syringe SUBCUT SCH (08:18)
[2019-01-14] MEDS: Multivitamins,Therapeutic Tab PO SCH (08:18)
[2019-01-14] MEDS: Triamcinolone Acetonide 0.1% Crm 15 GM Tube TOP SCH (08:19)
[2019-01-14] MEDS: Ascorbic Acid 500 MG Tab PO SCH (08:19)
[2019-01-14] MEDS: Cholecalciferol (Vitamin D3) 25 MCG Tab PO SCH (08:20)
[2019-01-14] MEDS: Zinc Sulfate 220 MG Cap PO SCH (08:20)
[2019-01-14] MEDS: Allopurinol 300 MG Tab PO SCH (08:20)
[2019-01-14] MEDS: Acetaminophen 325 MG Tab PO PRN (08:33)
[2019-01-14] MEDS: Gabapentin 300 MG Cap PO SCH ×3 (08:33→20:47)
[2019-01-14] MEDS: traMADol 50 MG Tab PO PRN (12:31)
--- NOTE | 2019-01-14 12:40 | PCM.PN ---
- General Info Date of Service: 01/14/19 Admission Dx/Problem (Free Text): Wound vac change today, was concerned that was getting worse so was present during change. Reviewed images from 01/12 vac change for comparison. - Review of Systems General: Reports: No Symptoms Skin: Reports: Other (ulcer) - Patient Data Vitals - Most Recent: Last Vital Signs Temp 97.9 F 01/13/19 08:00 Pulse 92 01/13/19 08:00 Resp 18 01/13/19 08:00 BP 124/80 01/13/19 08:00 Pulse Ox 96 01/13/19 08:00 Weight - Most Recent: 320 lb I&O - Last 24 Hours: Intake & Output 01/13/19 01/14/19 01/14/19 22:59 06:59 14:59 Intake Total 450 100 Output Total 475 450 Balance -25 -350 Lab Results Last 24 Hours: Laboratory Results - last 24 hr 01/13/19 Range/Units 17:28 POC Glucose 212 H (80-116) mg/dL Med Orders - Current: Current Medications Acetaminophen (Tylenol) 650 mg PO TID PRN PRN Reason: mild pain Last Admin: 01/14/19 08:33 Dose: 650 mg Acetaminophen/Diphenhydramine HCl (Tylenol Pm Extra Strength) 2 tab PO BEDTIME [facility] Last Admin: 01/13/19 20:41 Dose: 2 tab Hydrocodone Bitart/Acetaminophen ([place] 325-7.5 Mg) 1 tab PO Q4H PRN PRN Reason: MODERATE PAIN Allopurinol (Zyloprim) 300 mg PO DAILY [facility] Last Admin: 01/14/19 08:20 Dose: 300 mg Artificial Tears (Refresh Tears 0.5%) 0 ml EYELF Q2H PRN PRN Reason: Dry Eyes Ascorbic Acid (Vitamin C) 1,000 mg PO DAILY [facility] Last Admin: 01/14/19 08:19 Dose: 1,000 mg Beta Carotene (A-Low-25) 25,000 units PO DAILY [facility] Last Admin: 01/14/19 08:17 Dose: 25,000 units Cholecalciferol (Vitamin D3) 100 mcg PO DAILY [facility] Last Admin: 01/14/19 08:20 Dose: 100 mcg Cranberry (Cranberry) 500 mg PO DAILY [facility] Last Admin: 01/14/19 08:17 Dose: 500 mg Enoxaparin Sodium (Lovenox) 40 mg SUBCUT DAILY [facility] Stop: 02/22/19 09:01 Last Admin: 01/14/19 08:18 Dose: 40 mg Ferrous Sulfate (Ferrous Sulfate) 325 mg PO BID [facility] Last Admin: 01/14/19 08:17 Dose: 325 mg Gabapentin (Neurontin) 300 mg PO TID [facility] Last Admin: 01/14/19 08:33 Dose: 300 mg Guaifenesin (Mucinex) 600 mg PO BID PRN PRN Reason: Cough Last Admin: 01/12/19 21:10 Dose: 600 mg Heparin Sodium (Porcine) (Heparin Lock Flush 100 Units/Ml) 300 units FLUSH Q8H [facility] Last Admin: 01/14/19 08:34 Dose: 300 units Meropenem 1 gm/ Sodium (Chloride) 100 mls @ 200 mls/hr IV Q8H [facility] Stop: 02/17/19 23:59 Last Admin: 01/14/19 08:05 Dose: 200 mls/hr Influenza Virus Vaccine (Fluzone Quad Syringe) 60 mcg IM .ONCE ONE Stop: 01/17/19 09:01 Lovastatin (Mevacor) 20 mg PO BEDTIME [facility] Last Admin: 01/13/19 20:41 Dose: 20 mg Metformin HCl (Glucophage) 500 mg PO WITHBREAKFAST [facility] Last Admin: 01/14/19 08:17 Dose: 500 mg Multivitamins (Thera) 1 each PO DAILY [facility] Last Admin: 01/14/19 08:18 Dose: 1 each Pneumococcal Polyvalent Vaccine (Pneumovax 23) 0.5 ml IM .ONCE ONE Stop: 01/17/19 09:01 Saccharomyces Boulardii (Florastor) 250 mg PO DAILY [facility] Last Admin: 01/14/19 08:17 Dose: 250 mg Senna/Docusate Sodium (Senna Plus) 1 tab PO BEDTIME PRN PRN Reason: Constipation Sodium Chloride (Saline Flush) 10 ml FLUSH ASDIRECTED PRN PRN Reason: FLUSH Last Admin: 01/14/19 08:06 Dose: 10 ml Tramadol HCl (Ultram) 50 mg PO QID PRN PRN Reason: SEVERE PAIN Last Admin: 01/14/19 12:31 Dose: 50 mg Triamcinolone Acetonide (Triamcinolone Acetonide 0.1% Crm) 0 gm TOP DAILY [facility] Last Admin: 01/14/19 08:19 Dose: 1 applic Triamcinolone Acetonide (Triamcinolone Acetonide 0.1% Crm) 0 gm TOP DAILY PRN PRN Reason: RASH Zinc Sulfate (Zincate) 220 mg PO DAILY [facility] Last Admin: 01/14/19 08:20 Dose: 220 mg Discontinued Medications Acetic Acid (Acetic Acid 0.25%) 1,000 ml IRR BID [facility] Stop: 01/11/19 21:01 Last Admin: 01/11/19 20:56 Dose: 1 applic Meropenem 1 gm/ Sodium (Chloride) 100 mls @ 200 mls/hr IV Q8H [facility] Stop: 01/14/19 02:00 Last Admin: 01/14/19 00:05 Dose: 200 mls/hr Meropenem (Merrem) 1 gm IV Q8H [facility] Metformin HCl (Glucophage) 500 mg PO ONETIME ONE Stop: 01/11/19 18:57 Last Admin: 01/11/19 20:55 Dose: 500 mg - Exam General: Alert, Oriented, Cooperative, No Acute Distress Wound/Incisions: Erythema Improving, Decubitis (depth 7 cm, wound edges have good granulation tissue present. R buttock erythematous but no skin breakdown, on 01/12 image had some white dry skin that has since sloughed off. Left buttock erthematous: comparison from 01/12 area of erythema on lateral buttock as healed , some white skin is sloughing off on medial side of buttock extend ~4 cm from wound edge, inside edge of wound has good granulation & blood flow, no skin undermining present. Improved from images on 01/12.) - Problem List & Annotations (1) Decubitus ulcer, stage 4 SNOMED Code(s): 935342165 Code(s): L89.94 - PRESSURE ULCER OF UNSPECIFIED SITE, STAGE 4 Status: Acute Current Visit: Yes (2) Colostomy care SNOMED Code(s): 829497095, 795162379 Code(s): Z43.3 - ENCOUNTER FOR ATTENTION TO COLOSTOMY Status: Acute Current Visit: Yes (3) Osteomyelitis SNOMED Code(s): 68883072 Code(s): M86.9 - OSTEOMYELITIS, UNSPECIFIED Status: Acute Current Visit: Yes (4) Suprapubic catheter SNOMED Code(s): 663540962, 395760605 Code(s): Z93.59 - OTHER CYSTOSTOMY STATUS Status: Chronic Current Visit: Yes (5) Hypertension SNOMED Code(s): 92482128 Code(s): I10 - ESSENTIAL (PRIMARY) HYPERTENSION Status: Chronic Current Visit: No (6) Obesity SNOMED Code(s): 920042466, 222300250 Code(s): E66.9 - OBESITY, UNSPECIFIED Status: Chronic Current Visit: No (7) Type 2 diabetes mellitus SNOMED Code(s): 82151628 Code(s): E11.9 - TYPE 2 DIABETES MELLITUS WITHOUT COMPLICATIONS Status: Chronic Current Visit: No - Problem List Review Problem List Initiated/Reviewed/Updated: Yes - Plan Plan:: 1. Admit to swing bed for IV antibiotics, Merrem 1 gm q8h. 2. Wound VAC and wound VAC care continue, reassess on Thursday with vac change. 3. Is on Lovenox for VTE prophylaxis 4. Has wheelchair that can provide off loading on his coccyx, nursing shown by PT on how it works and how to move chair manually if needed. 5. Continue metformin check his Accu-Cheks twice a day and a diabetic diet. 6. May go out on day passes with as needed or around facility between IV doses, advised to return 30 min prior to infusion. states he doesn't like the cold so she probably would keep to facility if they go out of the room.
[2019-01-14] MEDS: Carboxymethylcellulose Sodium 0.5% Ophth Soln 15 ML Bottle EYELF PRN (14:11)
[2019-01-14] MEDS: Acetaminophen/Diphenhydramine 500-25 MG Tab PO SCH (20:47)
[2019-01-15] MEDS: Sodium Chloride 0.9% 10 ML Syringe FLUSH PRN ×6 (00:06→15:52)
[2019-01-15] MEDS: Meropenem 1 GM in Sodium Chloride 0.9% 100 ML IV SCH ×3 (00:07→15:16)
[2019-01-15] MEDS: Gabapentin 300 MG Cap PO SCH ×3 (08:00→20:44)
[2019-01-15] MEDS: BETA CAROTENE 25000 UNIT PO SCH (08:03)
[2019-01-15] MEDS: metFORMIN 500 MG Tab PO SCH (08:04)
[2019-01-15] MEDS: Ferrous Sulfate 325 MG Tab PO SCH ×2 (08:04→20:43)
[2019-01-15] MEDS: Multivitamins,Therapeutic Tab PO SCH (08:06)
[2019-01-15] MEDS: Allopurinol 300 MG Tab PO SCH (08:06)
[2019-01-15] MEDS: Cranberry 500 MG Cap PO SCH (08:06)
[2019-01-15] MEDS: Ascorbic Acid 500 MG Tab PO SCH (08:06)
[2019-01-15] MEDS: Enoxaparin 40 MG/0.4 ML Syringe SUBCUT SCH (08:06)
[2019-01-15] MEDS: Cholecalciferol (Vitamin D3) 25 MCG Tab PO SCH (08:06)
[2019-01-15] MEDS: Zinc Sulfate 220 MG Cap PO SCH (08:06)
[2019-01-15] MEDS: Saccharomyces Boulardii (Probiotic) 250 MG Cap PO SCH (08:07)
[2019-01-15] MEDS: Carboxymethylcellulose Sodium 0.5% Ophth Soln 15 ML Bottle EYELF PRN (08:07)
[2019-01-15] MEDS: Triamcinolone Acetonide 0.1% Crm 15 GM Tube TOP SCH (08:11)
[2019-01-15] MEDS: Acetaminophen/Diphenhydramine 500-25 MG Tab PO SCH (20:44)
[2019-01-16] MEDS: Sodium Chloride 0.9% 10 ML Syringe FLUSH PRN ×7 (00:08→19:05)
[2019-01-16] MEDS: Meropenem 1 GM in Sodium Chloride 0.9% 100 ML IV SCH ×3 (00:09→16:02)
[2019-01-16] MEDS: Cholecalciferol (Vitamin D3) 25 MCG Tab PO SCH (08:00)
[2019-01-16] MEDS: Gabapentin 300 MG Cap PO SCH ×3 (08:00→21:15)
[2019-01-16] MEDS: Cranberry 500 MG Cap PO SCH (08:01)
[2019-01-16] MEDS: Saccharomyces Boulardii (Probiotic) 250 MG Cap PO SCH (08:01)
[2019-01-16] MEDS: BETA CAROTENE 25000 UNIT PO SCH (08:01)
[2019-01-16] MEDS: Zinc Sulfate 220 MG Cap PO SCH (08:01)
[2019-01-16] MEDS: Multivitamins,Therapeutic Tab PO SCH (08:01)
[2019-01-16] MEDS: Ferrous Sulfate 325 MG Tab PO SCH ×2 (08:01→21:15)
[2019-01-16] MEDS: Ascorbic Acid 500 MG Tab PO SCH (08:02)
[2019-01-16] MEDS: Allopurinol 300 MG Tab PO SCH (08:02)
[2019-01-16] MEDS: metFORMIN 500 MG Tab PO SCH (08:02)
[2019-01-16] MEDS: Triamcinolone Acetonide 0.1% Crm 15 GM Tube TOP SCH (08:03)
[2019-01-16] MEDS: Enoxaparin 40 MG/0.4 ML Syringe SUBCUT SCH (08:04)
--- NOTE | 2019-01-16 09:12 | PCM.PN ---
- General Info Date of Service: 01/16/19 Admission Dx/Problem (Free Text): Patient states he feels fine, no shortness of breath, chest pain. No abdominal pain. Colostomy needs to be changed today. Erythema down around abscess site next to colostomy stoma. Shoulder pain is same, states its chronic and tries to avoid sleeping on it. States he is drinking the protein supplements but having hard time with the diet, just bland, no appetite. Wound vac to be changed tomorrow. Wound Vac Rep is supposed to be here. - Patient Data Vitals - Most Recent: Last Vital Signs Temp 97.3 F 01/16/19 08:00 Pulse 83 01/16/19 08:00 Resp 14 01/16/19 08:00 BP 93/62 01/16/19 08:00 Pulse Ox 94 L 01/16/19 08:00 Weight - Most Recent: 320 lb I&O - Last 24 Hours: Intake & Output 01/15/19 01/16/19 01/16/19 22:59 06:59 14:59 Intake Total 700 300 Output Total 1425 700 Balance -725 -400 Lab Results Last 24 Hours: Laboratory Results - last 24 hr 01/15/19 01/16/19 Range/Units 17:30 06:03 POC Glucose 196 H 169 H (80-116) mg/dL Med Orders - Current: Current Medications Acetaminophen (Tylenol) 650 mg PO TID PRN PRN Reason: mild pain Last Admin: 01/14/19 08:33 Dose: 650 mg Acetaminophen/Diphenhydramine HCl (Tylenol Pm Extra Strength) 2 tab PO BEDTIME [facility] Last Admin: 01/15/19 20:44 Dose: 2 tab Hydrocodone Bitart/Acetaminophen ([place] 325-7.5 Mg) 1 tab PO Q4H PRN PRN Reason: MODERATE PAIN Allopurinol (Zyloprim) 300 mg PO DAILY [facility] Last Admin: 01/16/19 08:02 Dose: 300 mg Artificial Tears (Refresh Tears 0.5%) 0 ml EYELF Q2H PRN PRN Reason: Dry Eyes Last Admin: 01/15/19 08:07 Dose: 1 drop Ascorbic Acid (Vitamin C) 1,000 mg PO DAILY [facility] Last Admin: 01/16/19 08:02 Dose: 1,000 mg Beta Carotene (A-Low-25) 25,000 units PO DAILY [facility] Last Admin: 01/16/19 08:01 Dose: 25,000 units Cholecalciferol (Vitamin D3) 100 mcg PO DAILY [facility] Last Admin: 01/16/19 08:00 Dose: 100 mcg Cranberry (Cranberry) 500 mg PO DAILY [facility] Last Admin: 01/16/19 08:01 Dose: 500 mg Enoxaparin Sodium (Lovenox) 40 mg SUBCUT DAILY [facility] Stop: 02/22/19 09:01 Last Admin: 01/16/19 08:04 Dose: 40 mg Ferrous Sulfate (Ferrous Sulfate) 325 mg PO BID [facility] Last Admin: 01/16/19 08:01 Dose: 325 mg Gabapentin (Neurontin) 300 mg PO TID [facility] Last Admin: 01/16/19 08:00 Dose: 300 mg Guaifenesin (Mucinex) 600 mg PO BID PRN PRN Reason: Cough Last Admin: 01/12/19 21:10 Dose: 600 mg Heparin Sodium (Porcine) (Heparin Lock Flush 100 Units/Ml) 300 units FLUSH Q8H [facility] Last Admin: 01/16/19 08:05 Dose: 300 units Meropenem 1 gm/ Sodium (Chloride) 100 mls @ 200 mls/hr IV Q8H [facility] Stop: 02/17/19 23:59 Last Admin: 01/16/19 07:33 Dose: 200 mls/hr Influenza Virus Vaccine (Fluzone Quad 4710-0110 Syringe) 60 mcg IM .ONCE ONE Stop: 01/17/19 09:01 Lovastatin (Mevacor) 20 mg PO BEDTIME [facility] Last Admin: 01/15/19 20:43 Dose: 20 mg Metformin HCl (Glucophage) 500 mg PO WITHBREAKFAST [facility] Last Admin: 01/16/19 08:02 Dose: 500 mg Multivitamins (Thera) 1 each PO DAILY [facility] Last Admin: 01/16/19 08:01 Dose: 1 each Pneumococcal Polyvalent Vaccine (Pneumovax 23) 0.5 ml IM .ONCE ONE Stop: 01/17/19 09:01 Saccharomyces Boulardii (Florastor) 250 mg PO DAILY [facility] Last Admin: 01/16/19 08:01 Dose: 250 mg Senna/Docusate Sodium (Senna Plus) 1 tab PO BEDTIME PRN PRN Reason: Constipation Sodium Chloride (Saline Flush) 10 ml FLUSH ASDIRECTED PRN PRN Reason: FLUSH Last Admin: 01/16/19 08:05 Dose: 10 ml Tramadol HCl (Ultram) 50 mg PO QID PRN PRN Reason: SEVERE PAIN Last Admin: 01/14/19 12:31 Dose: 50 mg Triamcinolone Acetonide (Triamcinolone Acetonide 0.1% Crm) 0 gm TOP DAILY [facility] Last Admin: 01/16/19 08:03 Dose: 1 applic Triamcinolone Acetonide (Triamcinolone Acetonide 0.1% Crm) 0 gm TOP DAILY PRN PRN Reason: RASH Zinc Sulfate (Zincate) 220 mg PO DAILY [facility] Last Admin: 01/16/19 08:01 Dose: 220 mg Discontinued Medications Acetic Acid (Acetic Acid 0.25%) 1,000 ml IRR BID [facility] Stop: 01/11/19 21:01 Last Admin: 01/11/19 20:56 Dose: 1 applic Meropenem 1 gm/ Sodium (Chloride) 100 mls @ 200 mls/hr IV Q8H [facility] Stop: 01/14/19 02:00 Last Admin: 01/14/19 00:05 Dose: 200 mls/hr Meropenem (Merrem) 1 gm IV Q8H [facility] Metformin HCl (Glucophage) 500 mg PO ONETIME ONE Stop: 01/11/19 18:57 Last Admin: 01/11/19 20:55 Dose: 500 mg - Exam General: Alert, Oriented, Cooperative, No Acute Distress Lungs: Clear to Auscultation, Normal Respiratory Effort Cardiovascular: Regular Rate, Regular Rhythm GI/Abdominal Exam: Normal Bowel Sounds, Soft, Non-Tender, Other (Colostomy not sticking on one side, will be changed today. No erythema seen around dressing site that is lateral to colostomy.) Extremities: No Pedal Edema - Problem List & Annotations (1) Decubitus ulcer, stage 4 SNOMED Code(s): 770674230 Code(s): L89.94 - PRESSURE ULCER OF UNSPECIFIED SITE, STAGE 4 Status: Acute Current Visit: Yes (2) Colostomy care SNOMED Code(s): 898248146, 118677863 Code(s): Z43.3 - ENCOUNTER FOR ATTENTION TO COLOSTOMY Status: Acute Current Visit: Yes (3) Osteomyelitis SNOMED Code(s): 15817372 Code(s): M86.9 - OSTEOMYELITIS, UNSPECIFIED Status: Acute Current Visit: Yes (4) Suprapubic catheter SNOMED Code(s): 738073077, 753958754 Code(s): Z93.59 - OTHER CYSTOSTOMY STATUS Status: Chronic Current Visit: Yes (5) Hypertension SNOMED Code(s): 08091649 Code(s): I10 - ESSENTIAL (PRIMARY) HYPERTENSION Status: Chronic Current Visit: No (6) Obesity SNOMED Code(s): 143965307, 456942834 Code(s): E66.9 - OBESITY, UNSPECIFIED Status: Chronic Current Visit: No (7) Type 2 diabetes mellitus SNOMED Code(s): 71159353 Code(s): E11.9 - TYPE 2 DIABETES MELLITUS WITHOUT COMPLICATIONS Status: Chronic Current Visit: No - Problem List Review Problem List Initiated/Reviewed/Updated: Yes - Plan Plan:: 1. IV antibiotics, Merrem 1 gm q8h. 2. Wound VAC and wound VAC care continue, reassess on Thursday with vac change. 3. May have outside food by family if nothing appealing on menu. 4. Has wheelchair that can provide off loading on his coccyx, nursing shown by PT on how it works and how to move chair manually if needed. 5. Continue metformin check his Accu-Cheks twice a day and a diabetic diet. 6. Is on Lovenox for VTE prophylaxis
[2019-01-16] MEDS: traMADol 50 MG Tab PO PRN (11:33)
--- NOTE | 2019-01-16 20:02 | PCM.SN ---
- Free Text/Narrative Note: I was called to see the patient by the nursing staff secondary to bleeding from the patient's sacral decubitus. The nurses report that they were moving him in bed and the patient did have a wound VAC in place and they noticed pooling of blood underneath him and the wound VAC was and there seems to be actively bleeding from the sacral decubitus. There was no blood collected in the wound VAC but there was blood on the bed. The patient was awake, alert and appropriate. He is paraplegic and has no pain in the area. He denies any weakness or dizziness. He ate and drink normally. Vital signs showed a pulse of . The patient's blood pressure was. Generally he is a somewhat obese male who is awake, alert and appropriate. He appears nontoxic and in no acute distress. HEENT: His pharynx is moist. Chest: Bilateral breath sounds are equal and clear to auscultation. Heart: Regular rate and rhythm without murmur. Abdomen: Soft and nontender. Back and buttock: His back appears normal. There is a large sacral decubitus and the packing from the wound VAC was removed. There does appear to be some small arterial pumper bleeders in the base of the wound. I can see at least 2 of them. These are controlled with direct pressure with no further bleeding with this direct pressure. Extremities: Well perfused. Neurologic: Paraplegia which is chronic. He moves his arms well. Wound care: Using a saline soaked Kerlix, I packed the sacral decubitus and then placed 4 x 4's and an ABD pad over this and then placed tape and a pressure type fashion over this. There did not appear to be any active bleeding after this. The plan will be to have the patient but to apply pressure directly to this area. We will send to check a CBC. And, the nursing staff will reassess the area frequently over the next 1-2 hours and watch it closely throughout the evening. I did call and discuss the patient's case with Dr. Julian so that she is aware of this potential problem and I discussed this with the oncoming nighttime hospitalist, Dr. Mason. Assessment: Bleeding from sacral decubitus, controlled at present with a pressure type dressing. Plan: As above. Further intervention as deemed necessary by on-call hospitalist base of the patient's clinical course.
[2019-01-16] MEDS: Acetaminophen/Diphenhydramine 500-25 MG Tab PO SCH (21:15)
[2019-01-17] MEDS: Meropenem 1 GM in Sodium Chloride 0.9% 100 ML IV SCH ×3 (00:05→16:17)
[2019-01-17] MEDS: Sodium Chloride 0.9% 10 ML Syringe FLUSH PRN ×6 (00:05→16:58)
[2019-01-17] MEDS: traMADol 50 MG Tab PO PRN ×3 (00:45→21:01)
[2019-01-17] MEDS: metFORMIN 500 MG Tab PO SCH (07:59)
[2019-01-17] MEDS: Ferrous Sulfate 325 MG Tab PO SCH ×2 (08:44→20:59)
[2019-01-17] MEDS: Cranberry 500 MG Cap PO SCH (08:44)
[2019-01-17] MEDS: BETA CAROTENE 25000 UNIT PO SCH (08:44)
[2019-01-17] MEDS: Saccharomyces Boulardii (Probiotic) 250 MG Cap PO SCH (08:45)
[2019-01-17] MEDS: Multivitamins,Therapeutic Tab PO SCH (08:45)
[2019-01-17] MEDS: Enoxaparin 40 MG/0.4 ML Syringe SUBCUT SCH (08:45)
[2019-01-17] MEDS: Triamcinolone Acetonide 0.1% Crm 15 GM Tube TOP SCH (08:45)
[2019-01-17] MEDS: Ascorbic Acid 500 MG Tab PO SCH (08:45)
[2019-01-17] MEDS: Zinc Sulfate 220 MG Cap PO SCH (08:46)
[2019-01-17] MEDS: Allopurinol 300 MG Tab PO SCH (08:46)
[2019-01-17] MEDS: Cholecalciferol (Vitamin D3) 25 MCG Tab PO SCH (08:46)
[2019-01-17] MEDS: Gabapentin 300 MG Cap PO SCH ×3 (08:48→21:00)
[2019-01-17] MEDS ORDERED: FLU Vacc QS2019-20(6MOS+)/PF 60 MCG/0.5 ML SYRINGE IM ONE (09:00)
[2019-01-17] MEDS ORDERED: Pneumococcal Polyvalent-23 Vaccine 0.5 ML SDV IM ONE (09:00)
[2019-01-17] MEDS ORDERED: Pneumococcal 13-Valent Conjugate Vaccine 0.5 ML Syringe IM ONE (09:00)
--- NOTE | 2019-01-17 12:40 | CONS ---
DATE OF CONSULTATION: 01/17/2019 CHIEF COMPLAINT: Wound care issues. HISTORY OF PRESENT ILLNESS: This is a 68-year-old white male who is well known to me as I had referred him to [place] with worsening sacral decubitus ulcer. The patient underwent debridement as well as a diverting colostomy at [place] in [place], and was transferred back here for swing bed care. Yesterday evening, he was noted to have some bleeding on the right lateral aspect of his sacral wound. This was controlled by packing; however, he was still bleeding this morning, and in addition, I was asked to give advice with his periostomy abscess that developed on the lateral edge of his diverting colostomy. This was opened and packed as well. PHYSICAL EXAMINATION: VITAL SIGNS: Reviewed. SKIN: On the lateral aspect of his diverting loop colostomy involving the transverse colon, there is an open cavity with granulation tissue at the base. Photos and measurements were taken. Please see the nurse's note for the exact details. There is some surrounding erythema around the skin, but there is no evidence of any overt infection, and this appears to be more secondary to skin irritation than any other factor. On evaluation of his sacral wound, he has excellent bed of granulation tissue developing. On the right lateral edge, there was a small steady ooze that was controlled with a [id number] 3-0 Vicryl as well as some Surgicel with good control of his bleeding. At this point, I would continue wet-to-dry dressing changes with this peristomal wound as scheduled and continue the wound VAC on his sacral wound. Please feel free to contact me if any other further issues develop. /[id number] /MODL
--- NOTE | 2019-01-17 13:42 | PCM.PN ---
- General Info Date of Service: 01/17/19 Admission Dx/Problem (Free Text): During patient cares last night, when they turned him, he was sitting in a pool of blood, wound vac had partial loosened. Evaluated by Dr Barker, there was area of arterial bleeding that he got stopped with direct pressure, wet to dry dressings and placed pressure dressing. Hgb was 8.8 last night and 8.5 this morning, asymptomatic. - Patient Data Vitals - Most Recent: Last Vital Signs Temp 99.3 F 01/16/19 23:00 Pulse 92 01/16/19 20:30 Resp 18 01/16/19 20:02 BP 123/73 01/16/19 20:02 Pulse Ox 96 01/16/19 20:02 Weight - Most Recent: 320 lb I&O - Last 24 Hours: Intake & Output 01/16/19 01/17/19 01/17/19 22:59 06:59 14:59 Intake Total 1350 350 Output Total 1400 700 Balance -50 -350 Lab Results Last 24 Hours: Laboratory Results - last 24 hr 01/16/19 01/17/19 01/17/19 Range/Units 19:05 06:01 06:25 WBC 2.9 L 3.3 L (4.5-12.0) X10-3/uL RBC 2.88 L 2.81 L (4.30-5.75) x10(6)uL Hgb 8.8 L 8.5 L (13.5-17.8) g/dL Hct 27.0 L 26.2 L (30.0-51.3) % MCV 93.7 93.3 (80-96) fL MCH 30.6 30.2 (27.7-33.6) pg MCHC 32.7 32.3 (32.2-35.4) g/dL RDW 17.7 H 17.8 H (11.5-15.5) % Plt Count 122 L 113 L (125-369) X10(3)uL MPV 10.6 H 10.3 (7.4-10.4) fL Neut % (Auto) 46.1 51.0 (46-82) % Lymph % (Auto) 36.2 31.4 (13-37) % Donley % (Auto) 12.7 H 12.9 H (4-12) % Eos % (Auto) 4 4 (1.0-5.0) % Baso % (Auto) 1 1 (0-2) % Neut # (Auto) 1.4 L 1.8 (1.6-8.3) # Lymph # (Auto) 1.0 1.0 (0.6-5.0) # Donley # (Auto) 0.4 0.4 (0.0-1.3) # Eos # (Auto) 0.1 0.1 (0.0-0.8) # Baso # (Auto) 0.0 0.0 (0.0-0.2) # Creatinine (0.70-1.30) mg/dL Est Cr Clr Drug Dosing mL/min Estimated GFR (MDRD) (>60) POC Glucose 165 H (80-116) mg/dL ALT (12-36) U/L 01/17/19 Range/Units 06:25 WBC (4.5-12.0) X10-3/uL RBC (4.30-5.75) x10(6)uL Hgb (13.5-17.8) g/dL Hct (30.0-51.3) % MCV (80-96) fL MCH (27.7-33.6) pg MCHC (32.2-35.4) g/dL RDW (11.5-15.5) % Plt Count (125-369) X10(3)uL MPV (7.4-10.4) fL Neut % (Auto) (46-82) % Lymph % (Auto) (13-37) % Donley % (Auto) (4-12) % Eos % (Auto) (1.0-5.0) % Baso % (Auto) (0-2) % Neut # (Auto) (1.6-8.3) # Lymph # (Auto) (0.6-5.0) # Donley # (Auto) (0.0-1.3) # Eos # (Auto) (0.0-0.8) # Baso # (Auto) (0.0-0.2) # Creatinine 0.7 (0.70-1.30) mg/dL Est Cr Clr Drug Dosing 114.14 mL/min Estimated GFR (MDRD) > 60 (>60) POC Glucose (80-116) mg/dL ALT 17 D (12-36) U/L Med Orders - Current: Current Medications Acetaminophen (Tylenol) 650 mg PO TID PRN PRN Reason: mild pain Last Admin: 01/14/19 08:33 Dose: 650 mg Acetaminophen/Diphenhydramine HCl (Tylenol Pm Extra Strength) 2 tab PO BEDTIME [facility] Last Admin: 01/16/19 21:15 Dose: 2 tab Hydrocodone Bitart/Acetaminophen ([place] 325-7.5 Mg) 1 tab PO Q4H PRN PRN Reason: MODERATE PAIN Allopurinol (Zyloprim) 300 mg PO DAILY [facility] Last Admin: 01/17/19 08:46 Dose: 300 mg Artificial Tears (Refresh Tears 0.5%) 0 ml EYELF Q2H PRN PRN Reason: Dry Eyes Last Admin: 01/15/19 08:07 Dose: 1 drop Ascorbic Acid (Vitamin C) 1,000 mg PO DAILY [facility] Last Admin: 01/17/19 08:45 Dose: 1,000 mg Beta Carotene (A-Low-25) 25,000 units PO DAILY [facility] Last Admin: 01/17/19 08:44 Dose: 25,000 units Cholecalciferol (Vitamin D3) 100 mcg PO DAILY [facility] Last Admin: 01/17/19 08:46 Dose: 100 mcg Cranberry (Cranberry) 500 mg PO DAILY [facility] Last Admin: 01/17/19 08:44 Dose: 500 mg Enoxaparin Sodium (Lovenox) 40 mg SUBCUT DAILY [facility] Stop: 02/22/19 09:01 Last Admin: 01/17/19 08:45 Dose: 40 mg Ferrous Sulfate (Ferrous Sulfate) 325 mg PO BID [facility] Last Admin: 01/17/19 08:44 Dose: 325 mg Gabapentin (Neurontin) 300 mg PO TID [facility] Last Admin: 01/17/19 08:48 Dose: 300 mg Guaifenesin (Mucinex) 600 mg PO BID PRN PRN Reason: Cough Last Admin: 01/12/19 21:10 Dose: 600 mg Heparin Sodium (Porcine) (Heparin Lock Flush 100 Units/Ml) 300 units FLUSH Q8H [facility] Last Admin: 01/17/19 08:24 Dose: 300 units Meropenem 1 gm/ Sodium (Chloride) 100 mls @ 200 mls/hr IV Q8H [facility] Stop: 02/17/19 23:59 Last Admin: 01/17/19 07:59 Dose: 200 mls/hr Lovastatin (Mevacor) 20 mg PO BEDTIME [facility] Last Admin: 01/16/19 21:15 Dose: 20 mg Metformin HCl (Glucophage) 500 mg PO WITHBREAKFAST [facility] Last Admin: 01/17/19 07:59 Dose: 500 mg Multivitamins (Thera) 1 each PO DAILY [facility] Last Admin: 01/17/19 08:45 Dose: 1 each Saccharomyces Boulardii (Florastor) 250 mg PO DAILY [facility] Last Admin: 01/17/19 08:45 Dose: 250 mg Senna/Docusate Sodium (Senna Plus) 1 tab PO BEDTIME PRN PRN Reason: Constipation Sodium Chloride (Saline Flush) 10 ml FLUSH ASDIRECTED PRN PRN Reason: FLUSH Last Admin: 01/17/19 08:24 Dose: 10 ml Tramadol HCl (Ultram) 50 mg PO QID PRN PRN Reason: SEVERE PAIN Last Admin: 01/17/19 05:57 Dose: 50 mg Triamcinolone Acetonide (Triamcinolone Acetonide 0.1% Crm) 0 gm TOP DAILY [facility] Last Admin: 01/17/19 08:45 Dose: 1 applic Triamcinolone Acetonide (Triamcinolone Acetonide 0.1% Crm) 0 gm TOP DAILY PRN PRN Reason: RASH Zinc Sulfate (Zincate) 220 mg PO DAILY [facility] Last Admin: 01/17/19 08:46 Dose: 220 mg Discontinued Medications Acetic Acid (Acetic Acid 0.25%) 1,000 ml IRR BID [facility] Stop: 01/11/19 21:01 Last Admin: 01/11/19 20:56 Dose: 1 applic Meropenem 1 gm/ Sodium (Chloride) 100 mls @ 200 mls/hr IV Q8H [facility] Stop: 01/14/19 02:00 Last Admin: 01/14/19 00:05 Dose: 200 mls/hr Influenza Virus Vaccine (Fluzone Quad Syringe) 60 mcg IM .ONCE ONE Stop: 01/17/19 09:01 Meropenem (Merrem) 1 gm IV Q8H [facility] Metformin HCl (Glucophage) 500 mg PO ONETIME ONE Stop: 01/11/19 18:57 Last Admin: 01/11/19 20:55 Dose: 500 mg Pneumococcal Polyvalent Vaccine (Pneumovax 23) 0.5 ml IM .ONCE ONE Stop: 01/17/19 09:01 - Exam General: Alert, Oriented, Cooperative, No Acute Distress Lungs: Clear to Auscultation, Normal Respiratory Effort Cardiovascular: Regular Rate, Regular Rhythm GI/Abdominal Exam: Normal Bowel Sounds, Soft, Non-Tender, No Distention, Other ( colostomy: leaking around bag) Extremities: No Pedal Edema Wound/Incisions: Erythema Improving (buttocks, stable around abscess at 300 to colostomy), Other (arterial bleed at 5:00 within decubitus ulcer otherwise looks improved from Thursday.) - Problem List & Annotations (1) Decubitus ulcer, stage 4 SNOMED Code(s): 932327217 Code(s): L89.94 - PRESSURE ULCER OF UNSPECIFIED SITE, STAGE 4 Status: Acute Current Visit: Yes (2) Colostomy care SNOMED Code(s): 639502939, 779204550 Code(s): Z43.3 - ENCOUNTER FOR ATTENTION TO COLOSTOMY Status: Acute Current Visit: Yes (3) Osteomyelitis SNOMED Code(s): 48182601 Code(s): M86.9 - OSTEOMYELITIS, UNSPECIFIED Status: Acute Current Visit: Yes (4) Suprapubic catheter SNOMED Code(s): 609639035, 145114998 Code(s): Z93.59 - OTHER CYSTOSTOMY STATUS Status: Chronic Current Visit: Yes (5) Hypertension SNOMED Code(s): 61367766 Code(s): I10 - ESSENTIAL (PRIMARY) HYPERTENSION Status: Chronic Current Visit: No (6) Obesity SNOMED Code(s): 494433898, 548548945 Code(s): E66.9 - OBESITY, UNSPECIFIED Status: Chronic Current Visit: No (7) Type 2 diabetes mellitus SNOMED Code(s): 09614686 Code(s): E11.9 - TYPE 2 DIABETES MELLITUS WITHOUT COMPLICATIONS Status: Chronic Current Visit: No - Problem List Review Problem List Initiated/Reviewed/Updated: Yes - My Orders Last 24 Hours: My Active Orders 01/17/19 09:28 Consult to Physician [CONS] Routine 01/17/19 09:29 Notify Provider Consults [RC] ASDIRECTED - Plan Plan:: 1. IV antibiotics, Merrem 1 gm q8h. 2. Consult Dr White, see his note for details & recommendations.
[2019-01-17] MEDS: Acetaminophen/Diphenhydramine 500-25 MG Tab PO SCH (20:58)
[2019-01-18] MEDS: Meropenem 1 GM in Sodium Chloride 0.9% 100 ML IV SCH ×4 (00:01→23:57)
[2019-01-18] MEDS: Sodium Chloride 0.9% 10 ML Syringe FLUSH PRN ×6 (00:04→23:58)
[2019-01-18] MEDS: traMADol 50 MG Tab PO PRN ×2 (08:14→21:19)
[2019-01-18] MEDS: metFORMIN 500 MG Tab PO SCH (08:41)
[2019-01-18] MEDS: Zinc Sulfate 220 MG Cap PO SCH (08:45)
[2019-01-18] MEDS: BETA CAROTENE 25000 UNIT PO SCH (08:45)
[2019-01-18] MEDS: Ferrous Sulfate 325 MG Tab PO SCH ×2 (08:45→21:19)
[2019-01-18] MEDS: Allopurinol 300 MG Tab PO SCH (08:45)
[2019-01-18] MEDS: Cholecalciferol (Vitamin D3) 25 MCG Tab PO SCH (08:45)
[2019-01-18] MEDS: Multivitamins,Therapeutic Tab PO SCH (08:45)
[2019-01-18] MEDS: Cranberry 500 MG Cap PO SCH (08:45)
[2019-01-18] MEDS: Ascorbic Acid 500 MG Tab PO SCH (08:46)
[2019-01-18] MEDS: Saccharomyces Boulardii (Probiotic) 250 MG Cap PO SCH (08:46)
[2019-01-18] MEDS: Triamcinolone Acetonide 0.1% Crm 15 GM Tube TOP PRN (08:46)
[2019-01-18] MEDS: Enoxaparin 40 MG/0.4 ML Syringe SUBCUT SCH (09:19)
[2019-01-18] MEDS: Triamcinolone Acetonide 0.1% Crm 15 GM Tube TOP SCH (09:23)
[2019-01-18] MEDS: Gabapentin 300 MG Cap PO SCH ×3 (09:32→21:19)
[2019-01-18] MEDS: Carboxymethylcellulose Sodium 0.5% Ophth Soln 15 ML Bottle EYELF PRN (09:42)
[2019-01-18] MEDS: Acetaminophen/Diphenhydramine 500-25 MG Tab PO SCH (21:19)
[2019-01-19] MEDS: Sodium Chloride 0.9% 10 ML Syringe FLUSH PRN ×7 (00:24→23:49)
[2019-01-19] MEDS: Meropenem 1 GM in Sodium Chloride 0.9% 100 ML IV SCH ×3 (07:49→23:16)
[2019-01-19] MEDS: Triamcinolone Acetonide 0.1% Crm 15 GM Tube TOP SCH (08:01)
[2019-01-19] MEDS: BETA CAROTENE 25000 UNIT PO SCH (08:02)
[2019-01-19] MEDS: Allopurinol 300 MG Tab PO SCH (08:02)
[2019-01-19] MEDS: Zinc Sulfate 220 MG Cap PO SCH (08:02)
[2019-01-19] MEDS: Multivitamins,Therapeutic Tab PO SCH (08:02)
[2019-01-19] MEDS: Cranberry 500 MG Cap PO SCH (08:02)
[2019-01-19] MEDS: metFORMIN 500 MG Tab PO SCH (08:02)
[2019-01-19] MEDS: Saccharomyces Boulardii (Probiotic) 250 MG Cap PO SCH (08:02)
[2019-01-19] MEDS: Ferrous Sulfate 325 MG Tab PO SCH ×2 (08:02→20:19)
[2019-01-19] MEDS: Ascorbic Acid 500 MG Tab PO SCH (08:02)
[2019-01-19] MEDS: Cholecalciferol (Vitamin D3) 25 MCG Tab PO SCH (08:02)
[2019-01-19] MEDS: Enoxaparin 40 MG/0.4 ML Syringe SUBCUT SCH (08:03)
[2019-01-19] MEDS: Gabapentin 300 MG Cap PO SCH ×3 (09:31→20:20)
[2019-01-19] MEDS: Acetaminophen/Diphenhydramine 500-25 MG Tab PO SCH (20:20)
[2019-01-20] MEDS: Meropenem 1 GM in Sodium Chloride 0.9% 100 ML IV SCH ×2 (08:29→15:57)
[2019-01-20] MEDS: metFORMIN 500 MG Tab PO SCH (08:30)
[2019-01-20] MEDS: Allopurinol 300 MG Tab PO SCH (08:31)
[2019-01-20] MEDS: Ferrous Sulfate 325 MG Tab PO SCH ×2 (08:31→21:15)
[2019-01-20] MEDS: BETA CAROTENE 25000 UNIT PO SCH (08:31)
[2019-01-20] MEDS: Cranberry 500 MG Cap PO SCH (08:31)
[2019-01-20] MEDS: Zinc Sulfate 220 MG Cap PO SCH (08:31)
[2019-01-20] MEDS: Cholecalciferol (Vitamin D3) 25 MCG Tab PO SCH (08:31)
[2019-01-20] MEDS: Saccharomyces Boulardii (Probiotic) 250 MG Cap PO SCH (08:38)
[2019-01-20] MEDS: Multivitamins,Therapeutic Tab PO SCH (08:38)
[2019-01-20] MEDS: Ascorbic Acid 500 MG Tab PO SCH (08:38)
[2019-01-20] MEDS: Gabapentin 300 MG Cap PO SCH ×3 (08:38→21:16)
[2019-01-20] MEDS: Triamcinolone Acetonide 0.1% Crm 15 GM Tube TOP SCH (08:40)
[2019-01-20] MEDS: Enoxaparin 40 MG/0.4 ML Syringe SUBCUT SCH (08:43)
[2019-01-20] MEDS: Sodium Chloride 0.9% 10 ML Syringe FLUSH PRN ×2 (09:06→16:44)
[2019-01-20] MEDS: Acetaminophen/Diphenhydramine 500-25 MG Tab PO SCH (21:16)
[2019-01-20] MEDS: Carboxymethylcellulose Sodium 0.5% Ophth Soln 15 ML Bottle EYELF PRN (22:11)
[2019-01-21] MEDS: Meropenem 1 GM in Sodium Chloride 0.9% 100 ML IV SCH ×3 (00:19→15:44)
[2019-01-21] MEDS: Sodium Chloride 0.9% 10 ML Syringe FLUSH PRN ×4 (00:53→23:46)
[2019-01-21] MEDS: traMADol 50 MG Tab PO PRN (07:53)
[2019-01-21] MEDS: metFORMIN 500 MG Tab PO SCH (07:59)
[2019-01-21] MEDS: Cranberry 500 MG Cap PO SCH (08:02)
[2019-01-21] MEDS: Zinc Sulfate 220 MG Cap PO SCH (08:02)
[2019-01-21] MEDS: BETA CAROTENE 25000 UNIT PO SCH (08:02)
[2019-01-21] MEDS: Enoxaparin 40 MG/0.4 ML Syringe SUBCUT SCH (08:02)
[2019-01-21] MEDS: Multivitamins,Therapeutic Tab PO SCH (08:02)
[2019-01-21] MEDS: Gabapentin 300 MG Cap PO SCH ×3 (08:02→21:02)
[2019-01-21] MEDS: Saccharomyces Boulardii (Probiotic) 250 MG Cap PO SCH (08:08)
[2019-01-21] MEDS: Ferrous Sulfate 325 MG Tab PO SCH ×2 (08:08→21:01)
[2019-01-21] MEDS: Ascorbic Acid 500 MG Tab PO SCH (08:09)
[2019-01-21] MEDS: Cholecalciferol (Vitamin D3) 25 MCG Tab PO SCH (08:09)
[2019-01-21] MEDS: Allopurinol 300 MG Tab PO SCH (08:09)
[2019-01-21] MEDS: Triamcinolone Acetonide 0.1% Crm 15 GM Tube TOP SCH (08:11)
[2019-01-21] MEDS: Carboxymethylcellulose Sodium 0.5% Ophth Soln 15 ML Bottle EYELF PRN ×2 (09:25→21:02)
--- NOTE | 2019-01-21 13:33 | PN ---
DATE SEEN: 01/21/2019 SUBJECTIVE: Fransisco Hopson is a 68-year-old male, presently in swing bed. He was transferred from [place] in [place] with complicated decubitus, underwent diverting colostomy, presently under wound care precautions and osteomyelitis. Wound was debrided, in today for followup. Otherwise, feeling well. Wound VAC will be changed today. Doing well in terms of pain and discomfort. MEDICATIONS: Reviewed, timing appropriate, including IV antibiotics 6 weeks' duration including meropenem 1 g q.8 hours, Florastor 250 mg 1 daily, along with medications. LABORATORY STUDIES OF SIGNIFICANCE: Glucoses 133, 208, 135, 225, 165, and metformin. OBJECTIVE: VITAL SIGNS: 36.1, 83, 115/56, 18 is the respiration, and O2 saturation 97%. GENERAL: Appears comfortable. Speech is congruent. NECK: Benign. Thyroid small. CHEST: Clear in all lung harris. No adventitious sounds. HEART: No ectopy or murmur. ABDOMEN: Ostomy in left lower quadrant functioning well. Viewed the sacral ulcer under physical therapy supervision and placement of wound VAC. ASSESSMENT: Complicated sacral ulcer osteomyelitis, ostomy functioning. PLAN: Medications on board, treatment as appropriate. Proceed accordingly. /[id number] SUE/SRIRAM
[2019-01-21] MEDS: Acetaminophen/Diphenhydramine 500-25 MG Tab PO SCH (21:01)
[2019-01-22] MEDS: traMADol 50 MG Tab PO PRN (00:28)
[2019-01-22] MEDS: Sodium Chloride 0.9% 10 ML Syringe FLUSH PRN ×2 (08:43→17:26)
[2019-01-22] MEDS: Meropenem 1 GM in Sodium Chloride 0.9% 100 ML IV SCH ×4 (08:43→16:47)
[2019-01-22] MEDS: Enoxaparin 40 MG/0.4 ML Syringe SUBCUT SCH (08:44)
[2019-01-22] MEDS: Allopurinol 300 MG Tab PO SCH (08:45)
[2019-01-22] MEDS: Ferrous Sulfate 325 MG Tab PO SCH ×2 (08:45→21:40)
[2019-01-22] MEDS: metFORMIN 500 MG Tab PO SCH (08:45)
[2019-01-22] MEDS: Saccharomyces Boulardii (Probiotic) 250 MG Cap PO SCH (08:45)
[2019-01-22] MEDS: Carboxymethylcellulose Sodium 0.5% Ophth Soln 15 ML Bottle EYELF PRN (08:46)
[2019-01-22] MEDS: Cranberry 500 MG Cap PO SCH (08:46)
[2019-01-22] MEDS: Gabapentin 300 MG Cap PO SCH ×3 (08:47→21:40)
[2019-01-22] MEDS: Triamcinolone Acetonide 0.1% Crm 15 GM Tube TOP SCH (08:50)
--- NOTE | 2019-01-22 10:06 | PN ---
DATE SEEN: 01/22/2019 Fransisco Hopson is a 68-year-old male in for long-term antibiotic therapy, 6 weeks. He has a large decubitus ulcer, which was debrided, undergoing wound VAC, and intravenous meropenem 1 g q.8 hours 6 weeks' duration. Wound VAC was placed yesterday viewed by myself, IV site was changed, and colostomy is doing well. Pain is not a big issue. Seen briefly, no particular complaints. Comfortable with care and treatment. /[id number] SUE/SRIRAM
[2019-01-22] MEDS: Acetaminophen 325 MG Tab PO PRN (13:30)
[2019-01-22] MEDS: Acetaminophen/Diphenhydramine 500-25 MG Tab PO SCH (21:41)
[2019-01-23] MEDS: Meropenem 1 GM in Sodium Chloride 0.9% 100 ML IV SCH ×3 (00:21→15:53)
[2019-01-23] MEDS: Sodium Chloride 0.9% 10 ML Syringe FLUSH PRN ×2 (00:23→15:53)
[2019-01-23] MEDS: Gabapentin 300 MG Cap PO SCH ×3 (08:25→20:36)
[2019-01-23] MEDS: metFORMIN 500 MG Tab PO SCH (08:25)
[2019-01-23] MEDS: Enoxaparin 40 MG/0.4 ML Syringe SUBCUT SCH (08:26)
[2019-01-23] MEDS: Triamcinolone Acetonide 0.1% Crm 15 GM Tube TOP SCH (08:26)
[2019-01-23] MEDS: Cranberry 500 MG Cap PO SCH (08:28)
[2019-01-23] MEDS: Allopurinol 300 MG Tab PO SCH (08:28)
[2019-01-23] MEDS: Saccharomyces Boulardii (Probiotic) 250 MG Cap PO SCH (08:28)
[2019-01-23] MEDS: Ferrous Sulfate 325 MG Tab PO SCH ×2 (08:28→20:35)
[2019-01-23] MEDS: Carboxymethylcellulose Sodium 0.5% Ophth Soln 15 ML Bottle EYELF PRN ×2 (08:48→22:00)
--- NOTE | 2019-01-23 10:18 | PN ---
DATE SEEN: 01/23/2019 SUBJECTIVE: Fransisco Hopson is a delightful 68-year-old male, in swing bed. Long-term stay, 6 weeks of IV antibiotic therapy. PICC line in place. Colostomy working well. Reviewed his medications and care. Sugars were noted. No recent laboratory studies. PHYSICAL EXAMINATION: CHEST: Clear in all lung harris. HEART: No ectopy or murmur. ABDOMEN: Colostomy functioning well. Abdomen is rotund. BACK: Complicated sacral wound with osteomyelitis. PLAN: Continue present treatment. We will do A1c, panel 8, and CBC in the interim. /[id number] SUE/SRIRAM
[2019-01-23 14:00] LABS: HEMOGLOBIN A1C 7.9 % (4.5-6.2)
[2019-01-23] MEDS: Acetaminophen/Diphenhydramine 500-25 MG Tab PO SCH (20:36)
[2019-01-24] MEDS: Meropenem 1 GM in Sodium Chloride 0.9% 100 ML IV SCH ×3 (00:18→16:29)
[2019-01-24] MEDS: Sodium Chloride 0.9% 10 ML Syringe FLUSH PRN ×6 (00:21→17:30)
[2019-01-24] MEDS: Enoxaparin 40 MG/0.4 ML Syringe SUBCUT SCH (08:17)
[2019-01-24] MEDS: Saccharomyces Boulardii (Probiotic) 250 MG Cap PO SCH (08:18)
[2019-01-24] MEDS: Cranberry 500 MG Cap PO SCH (08:19)
[2019-01-24] MEDS: Ferrous Sulfate 325 MG Tab PO SCH ×2 (08:19→22:19)
[2019-01-24] MEDS: metFORMIN 500 MG Tab PO SCH (08:19)
[2019-01-24] MEDS: Allopurinol 300 MG Tab PO SCH (08:20)
[2019-01-24] MEDS: Triamcinolone Acetonide 0.1% Crm 15 GM Tube TOP SCH (08:20)
[2019-01-24] MEDS: Gabapentin 300 MG Cap PO SCH ×3 (08:23→22:20)
--- NOTE | 2019-01-24 12:34 | PN ---
DATE SEEN: 01/24/2019 SUBJECTIVE: Fransisco Hopson is a 68-year-old male, presently in swing bed for treatment of osteomyelitis, complicated sacral ulcer with wound VAC, and antibiotic therapy. Expectation, 6 weeks. Doing well. There is no leakage from his wound VAC, now working appropriately. Planned to be transferred today. Review of laboratory studies. Hemoglobin 8.5 to 8.4, white count 2800, and platelets 123,000 and 107,000. Pulmonary issue on board. A1c 7.9, we will adjust his dose accordingly, more protein, less carbohydrates. Metformin 5000 mg b.i.d., continue present therapy. Other agents discussed, patient declined. OBJECTIVE: GENERAL: Appears comfortable. CHEST: Clear to all lung harris. HEART: No ectopy or murmur. ABDOMEN: Ostomy working well. ASSESSMENT: 1. Osteomyelitis of sacrum region. 2. Complicated sacral ulcer with debridement and wound VAC. 3. Diabetes mellitus. 4. Pancytopenia. PLAN: Medications, care, and treatment appropriate. Continue conservative therapy. /[id number] /SRIRAM
[2019-01-24] MEDS: Acetaminophen/Diphenhydramine 500-25 MG Tab PO SCH (22:20)
[2019-01-25] MEDS: Meropenem 1 GM in Sodium Chloride 0.9% 100 ML IV SCH ×3 (00:24→16:23)
[2019-01-25] MEDS: Sodium Chloride 0.9% 10 ML Syringe FLUSH PRN ×3 (01:02→16:24)
[2019-01-25] MEDS: Cranberry 500 MG Cap PO SCH (08:47)
[2019-01-25] MEDS: metFORMIN 500 MG Tab PO SCH (08:47)
[2019-01-25] MEDS: Ferrous Sulfate 325 MG Tab PO SCH ×2 (08:48→20:07)
[2019-01-25] MEDS: Saccharomyces Boulardii (Probiotic) 250 MG Cap PO SCH (08:48)
[2019-01-25] MEDS: Allopurinol 300 MG Tab PO SCH (08:49)
[2019-01-25] MEDS: Enoxaparin 40 MG/0.4 ML Syringe SUBCUT SCH (08:51)
[2019-01-25] MEDS: Gabapentin 300 MG Cap PO SCH ×3 (09:10→20:07)
[2019-01-25] MEDS: Triamcinolone Acetonide 0.1% Crm 15 GM Tube TOP SCH (09:10)
[2019-01-25] MEDS: Triamcinolone Acetonide 0.1% Crm 15 GM Tube TOP PRN (09:12)
[2019-01-25] MEDS: Carboxymethylcellulose Sodium 0.5% Ophth Soln 15 ML Bottle EYELF PRN ×2 (09:13→22:00)
--- NOTE | 2019-01-25 09:56 | PN ---
DATE SEEN: 01/25/2019 Fransisco Hopson is a 68-year-old male for long-term swing bed stay. 6 weeks' duration of IV antibiotics. Doing well. Wound VAC was replaced yesterday on 01/24/2019. Draining comfortably. Appetite has been maintained. Mood has been stable. Reviewed his laboratory studies. Indeed, there is a bone marrow suppressive issue going on. White count 2800, hemoglobin 8.1 and 8.5 previously, platelets 124,000 and 107,000. Glucoses have been reasonable, A1c noted at 7.9. Vital signs were stable. No other intervention or care required. /[id number] SUE/SRIRAM
[2019-01-25] MEDS: Acetaminophen/Diphenhydramine 500-25 MG Tab PO SCH (20:06)
[2019-01-26] MEDS: Meropenem 1 GM in Sodium Chloride 0.9% 100 ML IV SCH ×3 (00:10→16:26)
[2019-01-26] MEDS: Sodium Chloride 0.9% 10 ML Syringe FLUSH PRN ×5 (00:13→17:09)
[2019-01-26] MEDS: metFORMIN 500 MG Tab PO SCH (08:03)
[2019-01-26] MEDS: Enoxaparin 40 MG/0.4 ML Syringe SUBCUT SCH (08:04)
[2019-01-26] MEDS: Allopurinol 300 MG Tab PO SCH (08:05)
[2019-01-26] MEDS: Ferrous Sulfate 325 MG Tab PO SCH ×2 (08:05→20:26)
[2019-01-26] MEDS: Cranberry 500 MG Cap PO SCH (08:05)
[2019-01-26] MEDS: Saccharomyces Boulardii (Probiotic) 250 MG Cap PO SCH (08:05)
[2019-01-26] MEDS: Gabapentin 300 MG Cap PO SCH ×3 (08:06→20:27)
[2019-01-26] MEDS: Triamcinolone Acetonide 0.1% Crm 15 GM Tube TOP SCH (08:10)
[2019-01-26] MEDS: Carboxymethylcellulose Sodium 0.5% Ophth Soln 15 ML Bottle EYELF PRN ×2 (10:00→20:28)
--- NOTE | 2019-01-26 11:49 | PN ---
DATE SEEN: 01/26/2019 Reji Hopson is a 68-year-old male, admitted for 6-week course of IV antibiotics for coccygeal and sacral osteomyelitis. Wound VAC to be changed today. Doing well. Tolerating his medications. We looked at blood sugars, treatment, protein intake, and environmental issues. Exam was otherwise stable and satisfactory. /[id number] SUE/SRIRAM
[2019-01-26] MEDS: Acetaminophen/Diphenhydramine 500-25 MG Tab PO SCH (20:27)
[2019-01-27] MEDS: Meropenem 1 GM in Sodium Chloride 0.9% 100 ML IV SCH ×4 (00:20→23:05)
[2019-01-27] MEDS: Sodium Chloride 0.9% 10 ML Syringe FLUSH PRN ×7 (00:23→23:35)
[2019-01-27] MEDS: Saccharomyces Boulardii (Probiotic) 250 MG Cap PO SCH (08:05)
[2019-01-27] MEDS: Cranberry 500 MG Cap PO SCH (08:05)
[2019-01-27] MEDS: Allopurinol 300 MG Tab PO SCH (08:06)
[2019-01-27] MEDS: metFORMIN 500 MG Tab PO SCH (08:06)
[2019-01-27] MEDS: Ferrous Sulfate 325 MG Tab PO SCH ×2 (08:06→20:48)
[2019-01-27] MEDS: Triamcinolone Acetonide 0.1% Crm 15 GM Tube TOP SCH (08:07)
[2019-01-27] MEDS: Enoxaparin 40 MG/0.4 ML Syringe SUBCUT SCH (08:07)
[2019-01-27] MEDS: Triamcinolone Acetonide 0.1% Crm 15 GM Tube TOP PRN (08:07)
[2019-01-27] MEDS: Carboxymethylcellulose Sodium 0.5% Ophth Soln 15 ML Bottle EYELF PRN (08:10)
[2019-01-27] MEDS: Gabapentin 300 MG Cap PO SCH ×3 (08:13→20:49)
--- NOTE | 2019-01-27 09:58 | PN ---
DATE SEEN: 01/27/2019 Mr. Hopson is a 68-year-old male, presently in swing bed for complicated osteomyelitis and problematic sacral wound. Suprapubic catheter has been leaking through his penis. This has happened before. Discussed the implications and concerns. We will plan forward for consultation with Dr. White for suprapubic catheter replacement. /[id number] SUE/SRIRAM
--- NOTE | 2019-01-27 10:01 | PCM.SN ---
- Free Text/Narrative Note: 20 FR suprapubic cath was replaced under sterile technique without difficulty.
[2019-01-27] MEDS: Acetaminophen/Diphenhydramine 500-25 MG Tab PO SCH (20:49)
[2019-01-28] MEDS: Meropenem 1 GM in Sodium Chloride 0.9% 100 ML IV SCH ×3 (07:46→23:40)
[2019-01-28] MEDS: Sodium Chloride 0.9% 10 ML Syringe FLUSH PRN ×5 (07:47→23:39)
[2019-01-28] MEDS: Saccharomyces Boulardii (Probiotic) 250 MG Cap PO SCH (08:46)
[2019-01-28] MEDS: metFORMIN 500 MG Tab PO SCH (08:46)
[2019-01-28] MEDS: Cranberry 500 MG Cap PO SCH (08:48)
[2019-01-28] MEDS: Allopurinol 300 MG Tab PO SCH (08:48)
[2019-01-28] MEDS: Ferrous Sulfate 325 MG Tab PO SCH ×2 (08:48→23:35)
[2019-01-28] MEDS: Enoxaparin 40 MG/0.4 ML Syringe SUBCUT SCH (08:48)
[2019-01-28] MEDS: Gabapentin 300 MG Cap PO SCH ×3 (08:55→23:36)
[2019-01-28] MEDS: Triamcinolone Acetonide 0.1% Crm 15 GM Tube TOP SCH ×2 (13:24→13:25)
[2019-01-28] MEDS: Acetaminophen/Diphenhydramine 500-25 MG Tab PO SCH (23:36)
[2019-01-28] MEDS: Carboxymethylcellulose Sodium 0.5% Ophth Soln 15 ML Bottle EYELF PRN (23:38)
[2019-01-29] MEDS: Sodium Chloride 0.9% 10 ML Syringe FLUSH PRN ×6 (00:14→23:35)
[2019-01-29] MEDS: Meropenem 1 GM in Sodium Chloride 0.9% 100 ML IV SCH ×3 (08:57→23:35)
[2019-01-29] MEDS: Allopurinol 300 MG Tab PO SCH (09:10)
[2019-01-29] MEDS: metFORMIN 500 MG Tab PO SCH (09:10)
[2019-01-29] MEDS: Cranberry 500 MG Cap PO SCH (09:11)
[2019-01-29] MEDS: Saccharomyces Boulardii (Probiotic) 250 MG Cap PO SCH (09:11)
[2019-01-29] MEDS: Ferrous Sulfate 325 MG Tab PO SCH ×2 (09:11→21:35)
[2019-01-29] MEDS: Enoxaparin 40 MG/0.4 ML Syringe SUBCUT SCH (09:12)
[2019-01-29] MEDS: Gabapentin 300 MG Cap PO SCH ×3 (09:15→21:36)
[2019-01-29] MEDS: Carboxymethylcellulose Sodium 0.5% Ophth Soln 15 ML Bottle EYELF PRN (09:33)
[2019-01-29] MEDS: Triamcinolone Acetonide 0.1% Crm 15 GM Tube TOP SCH ×2 (10:34)
[2019-01-29] MEDS: Acetaminophen/Diphenhydramine 500-25 MG Tab PO SCH (21:36)
[2019-01-30] MEDS: Sodium Chloride 0.9% 10 ML Syringe FLUSH PRN ×3 (00:07→15:33)
[2019-01-30] MEDS: Meropenem 1 GM in Sodium Chloride 0.9% 100 ML IV SCH ×3 (08:01→23:50)
[2019-01-30] MEDS: Enoxaparin 40 MG/0.4 ML Syringe SUBCUT SCH (08:08)
[2019-01-30] MEDS: Triamcinolone Acetonide 0.1% Crm 15 GM Tube TOP SCH ×2 (08:09→08:10)
[2019-01-30] MEDS: metFORMIN 500 MG Tab PO SCH (08:10)
[2019-01-30] MEDS: Saccharomyces Boulardii (Probiotic) 250 MG Cap PO SCH (08:11)
[2019-01-30] MEDS: Allopurinol 300 MG Tab PO SCH (08:11)
[2019-01-30] MEDS: Ferrous Sulfate 325 MG Tab PO SCH ×2 (08:11→22:04)
[2019-01-30] MEDS: Gabapentin 300 MG Cap PO SCH ×3 (08:11→22:05)
[2019-01-30] MEDS: Carboxymethylcellulose Sodium 0.5% Ophth Soln 15 ML Bottle EYELF PRN (08:12)
[2019-01-30] MEDS: Cranberry 500 MG Cap PO SCH (08:12)
[2019-01-30] MEDS: Acetaminophen/Diphenhydramine 500-25 MG Tab PO SCH (22:05)
[2019-01-31] MEDS: Sodium Chloride 0.9% 10 ML Syringe FLUSH PRN ×4 (00:33→17:00)
[2019-01-31] MEDS: Meropenem 1 GM in Sodium Chloride 0.9% 100 ML IV SCH ×3 (08:06→23:48)
[2019-01-31] MEDS: Gabapentin 300 MG Cap PO SCH ×3 (08:18→21:20)
[2019-01-31] MEDS: Enoxaparin 40 MG/0.4 ML Syringe SUBCUT SCH (08:19)
[2019-01-31] MEDS: metFORMIN 500 MG Tab PO SCH (08:20)
[2019-01-31] MEDS: Cranberry 500 MG Cap PO SCH (08:20)
[2019-01-31] MEDS: Allopurinol 300 MG Tab PO SCH (08:20)
[2019-01-31] MEDS: Ferrous Sulfate 325 MG Tab PO SCH ×2 (08:20→21:20)
[2019-01-31] MEDS: Triamcinolone Acetonide 0.1% Crm 15 GM Tube TOP SCH ×2 (08:20→08:22)
[2019-01-31] MEDS: Saccharomyces Boulardii (Probiotic) 250 MG Cap PO SCH (08:20)
[2019-01-31] MEDS: Acetaminophen/Diphenhydramine 500-25 MG Tab PO SCH (21:20)
[2019-01-31] MEDS: Carboxymethylcellulose Sodium 0.5% Ophth Soln 15 ML Bottle EYELF PRN (21:22)
[2019-02-01] MEDS: Sodium Chloride 0.9% 10 ML Syringe FLUSH PRN ×4 (00:33→23:18)
[2019-02-01] MEDS: Acetaminophen 325 MG Tab PO PRN (05:42)
[2019-02-01] MEDS: Cranberry 500 MG Cap PO SCH (08:03)
[2019-02-01] MEDS: metFORMIN 500 MG Tab PO SCH (08:03)
[2019-02-01] MEDS: Saccharomyces Boulardii (Probiotic) 250 MG Cap PO SCH (08:04)
[2019-02-01] MEDS: Ferrous Sulfate 325 MG Tab PO SCH ×2 (08:04→20:37)
[2019-02-01] MEDS: Enoxaparin 40 MG/0.4 ML Syringe SUBCUT SCH (08:05)
[2019-02-01] MEDS: Allopurinol 300 MG Tab PO SCH (08:07)
[2019-02-01] MEDS: Gabapentin 300 MG Cap PO SCH ×3 (08:10→20:37)
[2019-02-01] MEDS: Meropenem 1 GM in Sodium Chloride 0.9% 100 ML IV SCH ×3 (08:13→23:19)
[2019-02-01] MEDS: Triamcinolone Acetonide 0.1% Crm 15 GM Tube TOP SCH ×2 (08:21→08:26)
[2019-02-01] MEDS: Acetaminophen/Diphenhydramine 500-25 MG Tab PO SCH (20:37)
[2019-02-02] MEDS: Sodium Chloride 0.9% 10 ML Syringe FLUSH PRN ×6 (00:03→23:39)
[2019-02-02] MEDS: Meropenem 1 GM in Sodium Chloride 0.9% 100 ML IV SCH ×3 (07:47→23:09)
[2019-02-02] MEDS: metFORMIN 500 MG Tab PO SCH (08:40)
[2019-02-02] MEDS: Ferrous Sulfate 325 MG Tab PO SCH ×2 (08:40→20:12)
[2019-02-02] MEDS: Cranberry 500 MG Cap PO SCH (08:40)
[2019-02-02] MEDS: Saccharomyces Boulardii (Probiotic) 250 MG Cap PO SCH (08:41)
[2019-02-02] MEDS: Allopurinol 300 MG Tab PO SCH (08:41)
[2019-02-02] MEDS: Triamcinolone Acetonide 0.1% Crm 15 GM Tube TOP SCH (08:42)
[2019-02-02] MEDS: Gabapentin 300 MG Cap PO SCH ×3 (08:48→20:12)
[2019-02-02] MEDS: Enoxaparin 40 MG/0.4 ML Syringe SUBCUT SCH (08:49)
[2019-02-02] MEDS: Acetaminophen/Diphenhydramine 500-25 MG Tab PO SCH (20:12)
[2019-02-03] MEDS: Sodium Chloride 0.9% 10 ML Syringe FLUSH PRN ×3 (07:52→17:58)
[2019-02-03] MEDS: Meropenem 1 GM in Sodium Chloride 0.9% 100 ML IV SCH ×3 (07:52→23:51)
[2019-02-03] MEDS: metFORMIN 500 MG Tab PO SCH (08:03)
[2019-02-03] MEDS: Allopurinol 300 MG Tab PO SCH (08:03)
[2019-02-03] MEDS: Saccharomyces Boulardii (Probiotic) 250 MG Cap PO SCH (08:04)
[2019-02-03] MEDS: Gabapentin 300 MG Cap PO SCH ×3 (08:04→20:16)
[2019-02-03] MEDS: Ferrous Sulfate 325 MG Tab PO SCH ×2 (08:04→20:13)
[2019-02-03] MEDS: Triamcinolone Acetonide 0.1% Crm 15 GM Tube TOP SCH (08:05)
[2019-02-03] MEDS: Enoxaparin 40 MG/0.4 ML Syringe SUBCUT SCH (08:06)
[2019-02-03] MEDS: Cranberry 500 MG Cap PO SCH (09:23)
[2019-02-03] MEDS: Acetaminophen 325 MG Tab PO PRN (19:05)
[2019-02-03] MEDS: Acetaminophen/Diphenhydramine 500-25 MG Tab PO SCH (20:18)
[2019-02-04] MEDS: Sodium Chloride 0.9% 10 ML Syringe FLUSH PRN ×5 (00:20→17:58)
[2019-02-04] MEDS: Meropenem 1 GM in Sodium Chloride 0.9% 100 ML IV SCH ×2 (07:42→16:03)
[2019-02-04] MEDS: Saccharomyces Boulardii (Probiotic) 250 MG Cap PO SCH (08:21)
[2019-02-04] MEDS: Ferrous Sulfate 325 MG Tab PO SCH ×2 (08:21→21:13)
[2019-02-04] MEDS: Enoxaparin 40 MG/0.4 ML Syringe SUBCUT SCH (08:21)
[2019-02-04] MEDS: Allopurinol 300 MG Tab PO SCH (08:22)
[2019-02-04] MEDS: metFORMIN 500 MG Tab PO SCH (08:22)
[2019-02-04] MEDS: Triamcinolone Acetonide 0.1% Crm 15 GM Tube TOP SCH (08:23)
[2019-02-04] MEDS: Gabapentin 300 MG Cap PO SCH ×3 (08:23→21:17)
[2019-02-04] MEDS: Cranberry 500 MG Cap PO SCH (08:23)
[2019-02-04] MEDS: Acetaminophen/Diphenhydramine 500-25 MG Tab PO SCH (21:13)
[2019-02-05] MEDS: Meropenem 1 GM in Sodium Chloride 0.9% 100 ML IV SCH ×3 (00:08→16:11)
[2019-02-05] MEDS: Sodium Chloride 0.9% 10 ML Syringe FLUSH PRN ×6 (00:09→16:49)
[2019-02-05] MEDS: Gabapentin 300 MG Cap PO SCH ×3 (08:11→21:30)
[2019-02-05] MEDS: Triamcinolone Acetonide 0.1% Crm 15 GM Tube TOP SCH (08:11)
[2019-02-05] MEDS: Saccharomyces Boulardii (Probiotic) 250 MG Cap PO SCH (08:12)
[2019-02-05] MEDS: Allopurinol 300 MG Tab PO SCH (08:12)
[2019-02-05] MEDS: Ferrous Sulfate 325 MG Tab PO SCH ×2 (08:12→21:30)
[2019-02-05] MEDS: metFORMIN 500 MG Tab PO SCH (08:12)
[2019-02-05] MEDS: Cranberry 500 MG Cap PO SCH (08:12)
[2019-02-05] MEDS: Enoxaparin 40 MG/0.4 ML Syringe SUBCUT SCH (08:14)
[2019-02-05] MEDS: Acetaminophen/Diphenhydramine 500-25 MG Tab PO SCH (21:30)
[2019-02-06] MEDS: Meropenem 1 GM in Sodium Chloride 0.9% 100 ML IV SCH ×3 (00:15→15:56)
[2019-02-06] MEDS: Sodium Chloride 0.9% 10 ML Syringe FLUSH PRN ×5 (01:22→16:29)
[2019-02-06] MEDS: Enoxaparin 40 MG/0.4 ML Syringe SUBCUT SCH (08:43)
[2019-02-06] MEDS: Triamcinolone Acetonide 0.1% Crm 15 GM Tube TOP SCH (08:43)
[2019-02-06] MEDS: Allopurinol 300 MG Tab PO SCH (08:43)
[2019-02-06] MEDS: Cranberry 500 MG Cap PO SCH (08:43)
[2019-02-06] MEDS: Ferrous Sulfate 325 MG Tab PO SCH ×2 (08:44→21:15)
[2019-02-06] MEDS: metFORMIN 500 MG Tab PO SCH (08:44)
[2019-02-06] MEDS: Saccharomyces Boulardii (Probiotic) 250 MG Cap PO SCH (08:44)
[2019-02-06] MEDS: Gabapentin 300 MG Cap PO SCH ×3 (08:46→21:16)
[2019-02-06] MEDS: Acetaminophen/Diphenhydramine 500-25 MG Tab PO SCH (21:16)
[2019-02-06] MEDS: Carboxymethylcellulose Sodium 0.5% Ophth Soln 15 ML Bottle EYELF PRN (22:00)
[2019-02-07] MEDS: Meropenem 1 GM in Sodium Chloride 0.9% 100 ML IV SCH ×3 (00:02→16:00)
[2019-02-07] MEDS: Sodium Chloride 0.9% 10 ML Syringe FLUSH PRN ×4 (00:35→16:47)
--- NOTE | 2019-02-07 09:17 | PCM.PN ---
- General Info Date of Service: 02/07/19 Admission Dx/Problem (Free Text): Patient states he does not have any pain. There doing the wound care today. His catheters is working. is concerned because it got really tired when he was at home. Wondering if a unit of blood would help since his hemoglobin so low. - Patient Data Vitals - Most Recent: Last Vital Signs Temp 97.7 F 02/06/19 08:00 Pulse 82 02/06/19 08:00 Resp 12 02/06/19 08:00 BP 108/68 02/06/19 08:00 Pulse Ox 95 02/06/19 08:00 Weight - Most Recent: 327 lb 1.6 oz I&O - Last 24 Hours: Intake & Output 02/06/19 02/07/19 02/07/19 22:59 06:59 14:59 Intake Total 908 100 Output Total 1200 1200 Balance -292 -1100 Lab Results Last 24 Hours: Laboratory Results - last 24 hr 02/06/19 02/07/19 02/07/19 Range/Units 17:32 06:51 08:15 WBC 3.0 L (4.5-12.0) X10-3/uL RBC 2.79 L (4.30-5.75) x10(6)uL Hgb 8.1 L (13.5-17.8) g/dL Hct 25.4 L (30.0-51.3) % MCV 91.2 (80-96) fL MCH 28.9 (27.7-33.6) pg MCHC 31.7 L (32.2-35.4) g/dL RDW 17.4 H (11.5-15.5) % Plt Count 119 L (125-369) X10(3)uL MPV 11.1 H (7.4-10.4) fL Add Manual Diff Yes Creatinine (0.70-1.30) mg/dL Est Cr Clr Drug Dosing mL/min Estimated GFR (MDRD) (>60) POC Glucose 184 H 137 H (80-116) mg/dL ALT (12-36) U/L 02/07/19 Range/Units 08:15 WBC (4.5-12.0) X10-3/uL RBC (4.30-5.75) x10(6)uL Hgb (13.5-17.8) g/dL Hct (30.0-51.3) % MCV (80-96) fL MCH (27.7-33.6) pg MCHC (32.2-35.4) g/dL RDW (11.5-15.5) % Plt Count (125-369) X10(3)uL MPV (7.4-10.4) fL Add Manual Diff Creatinine 0.7 (0.70-1.30) mg/dL Est Cr Clr Drug Dosing 114.14 mL/min Estimated GFR (MDRD) > 60 (>60) POC Glucose (80-116) mg/dL ALT 14 D (12-36) U/L Med Orders - Current: Current Medications Acetaminophen (Tylenol) 650 mg PO TID PRN PRN Reason: mild pain Last Admin: 02/03/19 19:05 Dose: 650 mg Acetaminophen/Diphenhydramine HCl (Tylenol Pm Extra Strength) 2 tab PO BEDTIME [facility] Last Admin: 02/06/19 21:16 Dose: 2 tab Hydrocodone Bitart/Acetaminophen ([place] 325-7.5 Mg) 1 tab PO Q4H PRN PRN Reason: MODERATE PAIN Allopurinol (Zyloprim) 300 mg PO DAILY [facility] Last Admin: 02/06/19 08:43 Dose: 300 mg Artificial Tears (Refresh Tears 0.5%) 0 ml EYELF Q2H PRN PRN Reason: Dry Eyes Last Admin: 02/06/19 22:00 Dose: 1 drop Cranberry (Cranberry) 500 mg PO DAILY [facility] Last Admin: 02/06/19 08:43 Dose: 500 mg Enoxaparin Sodium (Lovenox) 40 mg SUBCUT DAILY [facility] Stop: 02/22/19 09:01 Last Admin: 02/06/19 08:43 Dose: 40 mg Ferrous Sulfate (Ferrous Sulfate) 325 mg PO BID [facility] Last Admin: 02/06/19 21:15 Dose: 325 mg Gabapentin (Neurontin) 300 mg PO TID [facility] Last Admin: 02/06/19 21:16 Dose: 300 mg Heparin Sodium (Porcine) (Heparin Lock Flush 100 Units/Ml) 300 units FLUSH Q8H [facility] Last Admin: 02/07/19 00:36 Dose: 300 units Meropenem 1 gm/ Sodium (Chloride) 100 mls @ 200 mls/hr IV Q8H [facility] Stop: 02/17/19 23:59 Last Admin: 02/07/19 08:26 Dose: 200 mls/hr Lovastatin (Mevacor) 20 mg PO BEDTIME [facility] Last Admin: 02/06/19 21:15 Dose: 20 mg Metformin HCl (Glucophage) 500 mg PO WITHBREAKFAST [facility] Last Admin: 02/06/19 08:44 Dose: 500 mg Saccharomyces Boulardii (Florastor) 250 mg PO DAILY [facility] Last Admin: 02/06/19 08:44 Dose: 250 mg Senna/Docusate Sodium (Senna Plus) 1 tab PO BEDTIME PRN PRN Reason: Constipation Sodium Chloride (Saline Flush) 10 ml FLUSH ASDIRECTED PRN PRN Reason: FLUSH Last Admin: 02/07/19 00:35 Dose: 10 ml Triamcinolone Acetonide (Triamcinolone Acetonide 0.1% Crm) 0 gm TOP DAILY [facility] Last Admin: 02/06/19 08:43 Dose: 1 applic Triamcinolone Acetonide (Triamcinolone Acetonide 0.1% Crm) 0 gm TOP DAILY PRN PRN Reason: RASH Discontinued Medications Acetic Acid (Acetic Acid 0.25%) 1,000 ml IRR BID [facility] Stop: 01/11/19 21:01 Last Admin: 01/11/19 20:56 Dose: 1 applic Ascorbic Acid (Vitamin C) 1,000 mg PO DAILY [facility] Last Admin: 01/21/19 08:09 Dose: 1,000 mg Beta Carotene (A-Low-25) 25,000 units PO DAILY [facility] Last Admin: 01/21/19 08:02 Dose: 25,000 units Cholecalciferol (Vitamin D3) 100 mcg PO DAILY [facility] Last Admin: 01/21/19 08:09 Dose: 100 mcg Guaifenesin (Mucinex) 600 mg PO BID PRN PRN Reason: Cough Last Admin: 01/12/19 21:10 Dose: 600 mg Heparin Sodium (Porcine) (Heparin Lock Flush 100 Units/Ml) 300 units FLUSH STAT ONE Stop: 01/23/19 12:53 Last Admin: 01/23/19 13:28 Dose: 300 units Meropenem 1 gm/ Sodium (Chloride) 100 mls @ 200 mls/hr IV Q8H [facility] Stop: 01/14/19 02:00 Last Admin: 01/14/19 00:05 Dose: 200 mls/hr Influenza Virus Vaccine (Fluzone Quad Syringe) 60 mcg IM .ONCE ONE Stop: 01/17/19 09:01 Last Admin: 01/20/19 16:25 Dose: 60 mcg Meropenem (Merrem) 1 gm IV Q8H [facility] Metformin HCl (Glucophage) 500 mg PO ONETIME ONE Stop: 01/11/19 18:57 Last Admin: 01/11/19 20:55 Dose: 500 mg Multivitamins (Thera) 1 each PO DAILY [facility] Last Admin: 01/21/19 08:02 Dose: 1 each Pneumococcal Polyvalent Vaccine (Pneumovax 23) 0.5 ml IM .ONCE ONE Stop: 01/17/19 09:01 Last Admin: 01/20/19 16:20 Dose: 0.5 ml Tramadol HCl (Ultram) 50 mg PO QID PRN PRN Reason: SEVERE PAIN Last Admin: 01/22/19 00:28 Dose: 50 mg Triamcinolone Acetonide (Triamcinolone Acetonide 0.1% Crm) 0 gm TOP DAILY [facility] Stop: 02/01/19 10:00 Last Admin: 02/01/19 08:26 Dose: 1 applic Zinc Sulfate (Zincate) 220 mg PO DAILY [facility] Last Admin: 01/21/19 08:02 Dose: 220 mg - Exam General: Alert, Oriented, Cooperative Skin: Other (Large amado-sacral ulcer. No signs of infection. Good granulation tissue.) - Problem List & Annotations (1) Wound cellulitis SNOMED Code(s): 748916172 Code(s): L03.90 - CELLULITIS, UNSPECIFIED Status: Acute Current Visit: Yes (2) Osteomyelitis SNOMED Code(s): 10274129 Code(s): M86.9 - OSTEOMYELITIS, UNSPECIFIED Status: Acute Current Visit: Yes (3) Paraplegic gait SNOMED Code(s): 979807829 Code(s): R26.1 - PARALYTIC GAIT Status: Acute Current Visit: Yes (4) Colostomy care SNOMED Code(s): 615623865, 806167541 Code(s): Z43.3 - ENCOUNTER FOR ATTENTION TO COLOSTOMY Status: Acute Current Visit: Yes (5) Suprapubic catheter SNOMED Code(s): 408215188, 760695404 Code(s): Z93.59 - OTHER CYSTOSTOMY STATUS Status: Chronic Current Visit: Yes (6) Anemia SNOMED Code(s): 611734232 Code(s): D64.9 - ANEMIA, UNSPECIFIED Status: Acute Current Visit: No - Problem List Review Problem List Initiated/Reviewed/Updated: Yes - My Orders Last 24 Hours: My Active Orders 02/07/19 08:15 CBC WITH AUTO DIFF [HEME] WEEKLY 02/14/19 06:00 ALANINE AMINOTRANSFERASE,ALT [CHEM] WEEKLY CBC WITH AUTO DIFF [HEME] WEEKLY CREATININE W/GFR [CHEM] WEEKLY 02/21/19 06:00 ALANINE AMINOTRANSFERASE,ALT [CHEM] WEEKLY CBC WITH AUTO DIFF [HEME] WEEKLY CREATININE W/GFR [CHEM] WEEKLY - Plan Plan:: 1. IV antibiotics, Merrem 1 gm q8h. 2. Check hemoglobin today. This was be done. And they'll decide if they want a unit of blood.
[2019-02-07] MEDS: Saccharomyces Boulardii (Probiotic) 250 MG Cap PO SCH (09:34)
[2019-02-07] MEDS: Ferrous Sulfate 325 MG Tab PO SCH ×2 (09:34→20:03)
[2019-02-07] MEDS: Cranberry 500 MG Cap PO SCH (09:34)
[2019-02-07] MEDS: metFORMIN 500 MG Tab PO SCH (09:34)
[2019-02-07] MEDS: Triamcinolone Acetonide 0.1% Crm 15 GM Tube TOP SCH (09:35)
[2019-02-07] MEDS: Allopurinol 300 MG Tab PO SCH (09:35)
[2019-02-07] MEDS: Gabapentin 300 MG Cap PO SCH ×3 (09:38→20:08)
[2019-02-07] MEDS: Enoxaparin 40 MG/0.4 ML Syringe SUBCUT SCH (09:40)
[2019-02-07] MEDS ORDERED: guaiFENesin/Dextromethorphan 100-10 MG/5 ML Soln 5 ML Cup PO PRN (18:27)
[2019-02-07] MEDS: Acetaminophen/Diphenhydramine 500-25 MG Tab PO SCH (20:04)
[2019-02-08] MEDS: Sodium Chloride 0.9% 10 ML Syringe FLUSH PRN ×5 (00:11→20:13)
[2019-02-08] MEDS: Meropenem 1 GM in Sodium Chloride 0.9% 100 ML IV SCH ×3 (00:12→18:49)
[2019-02-08] MEDS: metFORMIN 500 MG Tab PO SCH (07:44)
[2019-02-08] MEDS: Triamcinolone Acetonide 0.1% Crm 15 GM Tube TOP PRN (07:50)
[2019-02-08] MEDS: Enoxaparin 40 MG/0.4 ML Syringe SUBCUT SCH (08:00)
[2019-02-08] MEDS: Ferrous Sulfate 325 MG Tab PO SCH ×2 (08:00→20:59)
[2019-02-08] MEDS: Gabapentin 300 MG Cap PO SCH ×3 (08:01→21:03)
[2019-02-08] MEDS: Allopurinol 300 MG Tab PO SCH (08:01)
[2019-02-08] MEDS: Saccharomyces Boulardii (Probiotic) 250 MG Cap PO SCH (08:01)
[2019-02-08] MEDS: Cranberry 500 MG Cap PO SCH (08:02)
[2019-02-08] MEDS: Triamcinolone Acetonide 0.1% Crm 15 GM Tube TOP SCH (10:08)
[2019-02-08] MEDS: Acetaminophen/Diphenhydramine 500-25 MG Tab PO SCH (21:00)
[2019-02-09] MEDS: Meropenem 1 GM in Sodium Chloride 0.9% 100 ML IV SCH ×3 (00:07→18:27)
[2019-02-09] MEDS: Sodium Chloride 0.9% 10 ML Syringe FLUSH PRN ×5 (00:52→19:22)
[2019-02-09] MEDS: Ferrous Sulfate 325 MG Tab PO SCH ×2 (08:02→21:07)
[2019-02-09] MEDS: Cranberry 500 MG Cap PO SCH (08:02)
[2019-02-09] MEDS: metFORMIN 500 MG Tab PO SCH (08:02)
[2019-02-09] MEDS: Enoxaparin 40 MG/0.4 ML Syringe SUBCUT SCH (08:02)
[2019-02-09] MEDS: Saccharomyces Boulardii (Probiotic) 250 MG Cap PO SCH (08:02)
[2019-02-09] MEDS: Triamcinolone Acetonide 0.1% Crm 15 GM Tube TOP SCH (08:03)
[2019-02-09] MEDS: Gabapentin 300 MG Cap PO SCH ×3 (08:03→21:08)
[2019-02-09] MEDS: Allopurinol 300 MG Tab PO SCH (08:04)
[2019-02-09] MEDS: Acetaminophen/Diphenhydramine 500-25 MG Tab PO SCH (21:08)
[2019-02-09] MEDS: Carboxymethylcellulose Sodium 0.5% Ophth Soln 15 ML Bottle EYELF PRN (21:08)
[2019-02-10] MEDS: Meropenem 1 GM in Sodium Chloride 0.9% 100 ML IV SCH ×3 (00:36→16:04)
[2019-02-10] MEDS: Sodium Chloride 0.9% 10 ML Syringe FLUSH PRN ×4 (01:16→16:40)
[2019-02-10] MEDS: metFORMIN 500 MG Tab PO SCH (08:07)
[2019-02-10] MEDS: Cranberry 500 MG Cap PO SCH (08:07)
[2019-02-10] MEDS: Ferrous Sulfate 325 MG Tab PO SCH ×2 (08:07→20:48)
[2019-02-10] MEDS: Saccharomyces Boulardii (Probiotic) 250 MG Cap PO SCH (08:07)
[2019-02-10] MEDS: Gabapentin 300 MG Cap PO SCH ×3 (08:08→20:48)
[2019-02-10] MEDS: Triamcinolone Acetonide 0.1% Crm 15 GM Tube TOP SCH (08:08)
[2019-02-10] MEDS: Enoxaparin 40 MG/0.4 ML Syringe SUBCUT SCH (08:08)
[2019-02-10] MEDS: Allopurinol 300 MG Tab PO SCH (08:08)
[2019-02-10] MEDS: Acetaminophen/Diphenhydramine 500-25 MG Tab PO SCH (20:48)
[2019-02-11] MEDS: Sodium Chloride 0.9% 10 ML Syringe FLUSH PRN ×5 (00:20→16:39)
[2019-02-11] MEDS: Meropenem 1 GM in Sodium Chloride 0.9% 100 ML IV SCH ×3 (00:20→16:07)
[2019-02-11] MEDS: Cranberry 500 MG Cap PO SCH (09:32)
[2019-02-11] MEDS: metFORMIN 500 MG Tab PO SCH (09:32)
[2019-02-11] MEDS: Saccharomyces Boulardii (Probiotic) 250 MG Cap PO SCH (09:32)
[2019-02-11] MEDS: Allopurinol 300 MG Tab PO SCH (09:32)
[2019-02-11] MEDS: Ferrous Sulfate 325 MG Tab PO SCH ×2 (09:32→20:23)
[2019-02-11] MEDS: Gabapentin 300 MG Cap PO SCH ×3 (09:33→20:24)
[2019-02-11] MEDS: Enoxaparin 40 MG/0.4 ML Syringe SUBCUT SCH (09:33)
[2019-02-11] MEDS: Carboxymethylcellulose Sodium 0.5% Ophth Soln 15 ML Bottle EYELF PRN (11:30)
[2019-02-11] MEDS: Triamcinolone Acetonide 0.1% Crm 15 GM Tube TOP SCH (11:30)
[2019-02-11] MEDS: Acetaminophen/Diphenhydramine 500-25 MG Tab PO SCH (20:24)
[2019-02-12] MEDS: Meropenem 1 GM in Sodium Chloride 0.9% 100 ML IV SCH ×3 (00:45→15:06)
[2019-02-12] MEDS: Sodium Chloride 0.9% 10 ML Syringe FLUSH PRN ×4 (00:47→16:18)
[2019-02-12] MEDS: Cranberry 500 MG Cap PO SCH (09:02)
[2019-02-12] MEDS: Triamcinolone Acetonide 0.1% Crm 15 GM Tube TOP PRN (09:04)
[2019-02-12] MEDS: Enoxaparin 40 MG/0.4 ML Syringe SUBCUT SCH (09:04)
[2019-02-12] MEDS: Gabapentin 300 MG Cap PO SCH ×3 (09:04→21:10)
[2019-02-12] MEDS: Saccharomyces Boulardii (Probiotic) 250 MG Cap PO SCH (09:05)
[2019-02-12] MEDS: Ferrous Sulfate 325 MG Tab PO SCH ×2 (09:05→21:10)
[2019-02-12] MEDS: Triamcinolone Acetonide 0.1% Crm 15 GM Tube TOP SCH (09:06)
[2019-02-12] MEDS: Allopurinol 300 MG Tab PO SCH (09:07)
[2019-02-12] MEDS: metFORMIN 500 MG Tab PO SCH (09:09)
[2019-02-12] MEDS: Acetaminophen/Diphenhydramine 500-25 MG Tab PO SCH (21:10)
[2019-02-12] MEDS: Acetaminophen/HYDROcodone 325-7.5 MG Tab PO PRN (22:06)
[2019-02-13] MEDS: Sodium Chloride 0.9% 10 ML Syringe FLUSH PRN ×3 (00:09→17:41)
[2019-02-13] MEDS: Meropenem 1 GM in Sodium Chloride 0.9% 100 ML IV SCH ×3 (00:13→17:07)
[2019-02-13] MEDS: Ferrous Sulfate 325 MG Tab PO SCH ×2 (08:49→20:34)
[2019-02-13] MEDS: Cranberry 500 MG Cap PO SCH (08:49)
[2019-02-13] MEDS: Allopurinol 300 MG Tab PO SCH (08:50)
[2019-02-13] MEDS: Saccharomyces Boulardii (Probiotic) 250 MG Cap PO SCH (08:50)
[2019-02-13] MEDS: Gabapentin 300 MG Cap PO SCH ×3 (08:51→20:34)
[2019-02-13] MEDS: metFORMIN 500 MG Tab PO SCH (08:52)
[2019-02-13] MEDS: Enoxaparin 40 MG/0.4 ML Syringe SUBCUT SCH (08:59)
[2019-02-13] MEDS: Triamcinolone Acetonide 0.1% Crm 15 GM Tube TOP SCH (09:01)
[2019-02-13] MEDS: Acetaminophen/HYDROcodone 325-7.5 MG Tab PO PRN (19:18)
[2019-02-13] MEDS: Acetaminophen/Diphenhydramine 500-25 MG Tab PO SCH (20:35)
[2019-02-14] MEDS: Meropenem 1 GM in Sodium Chloride 0.9% 100 ML IV SCH ×3 (00:18→15:54)
[2019-02-14] MEDS: Sodium Chloride 0.9% 10 ML Syringe FLUSH PRN ×4 (00:19→16:31)
[2019-02-14] MEDS: Carboxymethylcellulose Sodium 0.5% Ophth Soln 15 ML Bottle EYELF PRN (07:30)
[2019-02-14] MEDS: Allopurinol 300 MG Tab PO SCH (08:56)
[2019-02-14] MEDS: metFORMIN 500 MG Tab PO SCH (08:56)
[2019-02-14] MEDS: Cranberry 500 MG Cap PO SCH (08:56)
[2019-02-14] MEDS: Saccharomyces Boulardii (Probiotic) 250 MG Cap PO SCH (08:56)
[2019-02-14] MEDS: Ferrous Sulfate 325 MG Tab PO SCH ×2 (08:56→21:19)
[2019-02-14] MEDS: Gabapentin 300 MG Cap PO SCH ×3 (09:01→21:21)
[2019-02-14] MEDS: Triamcinolone Acetonide 0.1% Crm 15 GM Tube TOP SCH (09:02)
[2019-02-14] MEDS: Enoxaparin 40 MG/0.4 ML Syringe SUBCUT SCH (10:04)
[2019-02-14] MEDS: Acetaminophen/Diphenhydramine 500-25 MG Tab PO SCH (21:20)
[2019-02-15] MEDS: Meropenem 1 GM in Sodium Chloride 0.9% 100 ML IV SCH ×4 (00:45→23:40)
[2019-02-15] MEDS: Sodium Chloride 0.9% 10 ML Syringe FLUSH PRN ×4 (01:22→23:41)
[2019-02-15] MEDS: metFORMIN 500 MG Tab PO SCH (08:06)
[2019-02-15] MEDS: Ferrous Sulfate 325 MG Tab PO SCH ×2 (08:15→21:07)
[2019-02-15] MEDS: Saccharomyces Boulardii (Probiotic) 250 MG Cap PO SCH (08:15)
[2019-02-15] MEDS: Allopurinol 300 MG Tab PO SCH (08:15)
[2019-02-15] MEDS: Cranberry 500 MG Cap PO SCH (08:15)
[2019-02-15] MEDS: Gabapentin 300 MG Cap PO SCH ×3 (08:16→21:07)
[2019-02-15] MEDS: Triamcinolone Acetonide 0.1% Crm 15 GM Tube TOP SCH (08:16)
[2019-02-15] MEDS: Enoxaparin 40 MG/0.4 ML Syringe SUBCUT SCH (08:17)
[2019-02-15] MEDS: Acetaminophen/Diphenhydramine 500-25 MG Tab PO SCH (21:08)
[2019-02-16] MEDS: Meropenem 1 GM in Sodium Chloride 0.9% 100 ML IV SCH ×2 (07:51→17:26)
[2019-02-16] MEDS: Sodium Chloride 0.9% 10 ML Syringe FLUSH PRN ×4 (07:51→18:20)
[2019-02-16] MEDS: metFORMIN 500 MG Tab PO SCH (08:31)
[2019-02-16] MEDS: Enoxaparin 40 MG/0.4 ML Syringe SUBCUT SCH (08:31)
[2019-02-16] MEDS: Triamcinolone Acetonide 0.1% Crm 15 GM Tube TOP SCH (08:31)
[2019-02-16] MEDS: Saccharomyces Boulardii (Probiotic) 250 MG Cap PO SCH (08:32)
[2019-02-16] MEDS: Cranberry 500 MG Cap PO SCH (08:32)
[2019-02-16] MEDS: Allopurinol 300 MG Tab PO SCH (08:32)
[2019-02-16] MEDS: Ferrous Sulfate 325 MG Tab PO SCH ×2 (08:32→21:08)
[2019-02-16] MEDS: Gabapentin 300 MG Cap PO SCH ×3 (08:45→21:08)
[2019-02-16] MEDS ORDERED: Sodium Chloride 0.9% 250 ML IV SCH (14:15)
[2019-02-16] MEDS: Carboxymethylcellulose Sodium 0.5% Ophth Soln 15 ML Bottle EYELF PRN (19:56)
[2019-02-16] MEDS: Acetaminophen/Diphenhydramine 500-25 MG Tab PO SCH (21:08)
[2019-02-17] MEDS: Meropenem 1 GM in Sodium Chloride 0.9% 100 ML IV SCH ×3 (01:09→15:17)
[2019-02-17] MEDS: Sodium Chloride 0.9% 10 ML Syringe FLUSH PRN ×3 (01:16→15:55)
[2019-02-17] MEDS: metFORMIN 500 MG Tab PO SCH (08:48)
[2019-02-17] MEDS: Cranberry 500 MG Cap PO SCH (08:48)
[2019-02-17] MEDS: Saccharomyces Boulardii (Probiotic) 250 MG Cap PO SCH (08:49)
[2019-02-17] MEDS: Triamcinolone Acetonide 0.1% Crm 15 GM Tube TOP PRN (08:49)
[2019-02-17] MEDS: Ferrous Sulfate 325 MG Tab PO SCH ×2 (08:49→21:09)
[2019-02-17] MEDS: Allopurinol 300 MG Tab PO SCH (08:49)
[2019-02-17] MEDS: Enoxaparin 40 MG/0.4 ML Syringe SUBCUT SCH (08:50)
[2019-02-17] MEDS: Triamcinolone Acetonide 0.1% Crm 15 GM Tube TOP SCH (08:56)
[2019-02-17] MEDS: Gabapentin 300 MG Cap PO SCH ×3 (08:56→21:15)
[2019-02-17] MEDS: Carboxymethylcellulose Sodium 0.5% Ophth Soln 15 ML Bottle EYELF PRN (21:09)
[2019-02-17] MEDS: Acetaminophen/Diphenhydramine 500-25 MG Tab PO SCH (21:10)
[2019-02-18] MEDS: metFORMIN 500 MG Tab PO SCH (08:45)
[2019-02-18] MEDS: Cranberry 500 MG Cap PO SCH (08:45)
[2019-02-18] MEDS: Ferrous Sulfate 325 MG Tab PO SCH (08:46)
[2019-02-18] MEDS: Saccharomyces Boulardii (Probiotic) 250 MG Cap PO SCH (08:46)
[2019-02-18] MEDS: Enoxaparin 40 MG/0.4 ML Syringe SUBCUT SCH (08:46)
[2019-02-18] MEDS: Allopurinol 300 MG Tab PO SCH (08:46)
[2019-02-18] MEDS: Gabapentin 300 MG Cap PO SCH (08:48)
--- NOTE | 2019-02-18 12:45 | PCM.DCSUM1 ---
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 He is transferred down for [place] for sacral osteo- myelitis and amado-sacral wound for wound care and meropenem. Apparently had ESBL infection. When he was in [place] there is a colostomy to cleanup the wound area and place a wound VAC. Have it up for today and will start tomorrow. He has no other concerns. Had a fever in the hospital but that's better now. He denies a chest pain, shortness of breath or blood in the stool. Diagnosis: Stroke: No - Discharge Data Discharge Date: 02/18/19 Discharge Disposition: Home, W Home Health Agency 06 Condition: Good - Referral to Home Health Date of Face to Face Encounter: 02/18/19 Reason for Homebound Status: paraplegic Primary Care Physician: Fransisco Johnson MD Skilled Need: Wound vac changes --. Dressing changes on stage 1 ulcer on right posterior leg(just under right buttock). Hemogram on Thursday. Colostomy cares - Discharge Diagnosis/Problem(s) (1) Decubitus ulcer, stage 4 SNOMED Code(s): 085929267 ICD Code: L89.94 - PRESSURE ULCER OF UNSPECIFIED SITE, STAGE 4 Status: Acute Current Visit: Yes (2) Colostomy care SNOMED Code(s): 339462389, 029924010 ICD Code: Z43.3 - ENCOUNTER FOR ATTENTION TO COLOSTOMY Status: Acute Current Visit: Yes (3) Osteomyelitis SNOMED Code(s): 47725214 ICD Code: M86.9 - OSTEOMYELITIS, UNSPECIFIED Status: Acute Current Visit : Yes (4) Suprapubic catheter SNOMED Code(s): 440435442, 764152547 ICD Code: Z93.59 - OTHER CYSTOSTOMY STATUS Status: Chronic Current Visit : Yes (5) Hypertension SNOMED Code(s): 62148274 ICD Code: I10 - ESSENTIAL (PRIMARY) HYPERTENSION Status: Chronic Current Visit: No (6) Obesity SNOMED Code(s): 083256842, 864896873 ICD Code: E66.9 - OBESITY, UNSPECIFIED Status: Chronic Current Visit: No (7) Type 2 diabetes mellitus SNOMED Code(s): 15645539 ICD Code: E11.9 - TYPE 2 DIABETES MELLITUS WITHOUT COMPLICATIONS Status: Chronic Current Visit: No - Patient Summary/Data Consults: Consultations 01/12/19 08:07 OT Evaluation and Treatment [CONS] Routine Please Evaluate and Treat. OT Reason for Consult: Strengthening This query below is only for informational purposes and is not editable. Admission Diagnosis/Problem: Osteomyelitis of vertebra PT Evaluation and Treatment [CONS] Routine Please Evaluate and Treat. PT Reason for Consult: Strengthening This query below is only for informational purposes and is not editable. Admission Diagnosis/Problem: Osteomyelitis of vertebra 01/17/19 09:28 Consult to Physician [CONS] Routine Consulting Provider: Karsten Whiteesy Call Completed to Consulting Physician: Yes Reason for Consult: arterial bleed in decubitus ulcer 01/27/19 09:02 Consult to Physician [CONS] Routine Consulting Provider: Karsten White Call Completed to Consulting Physician: Yes: SPOKETO SURGICALSTAFFNURSE Reason for Consult: REPLACE SUPRAPUBIC CATHETER Person Notified: GRETA Date Notified: 01/27/19 Time Notified: 08:30 Hospital Course: Patient was admitted to [facility] from [facility] for 6 weeks of IV Merrem therapy and wound vac changes. He did have an arterial bleeder overnight on Jan 16, consulted Dr White the next day which he was able to repair at bedside. Wound vac changes --. Started a small stage 1 ulcer on right posterior leg just under right buttock. Abscess adjacent to colostomy is healing well and dressing has been changed to Aquacel and thin DuoDerm. He completed 6 weeks of antibiotics and PICC line was removed prior to discharge. He will be following up with wound care clinic in 2 weeks and will be having surgery for new suprapubic catheter stent first part of March. He did have leaking around suprapubic catheter and had it replaced by Dr White on Jan 27. He did receive 2 units of PRBCs last week as his hemoglobin was 8.1 and having more fatigue. He will be going home with Home health care, they were present today for wound vac change and dressing changes. Wound care instructions were copied and sent with discharge packet. Hemogram ordered for Thursday with follow up with Dr Johnson as needed. - Patient Instructions Diet: Diabetic Diet Notify Provider of: Fever, Swelling and Redness, Drainage Other/Special Instructions: Follow up as previously arranged with wound care clinic and for suprapubic catheter stent change. Follow up with Dr Johnson as needed - Discharge Plan *PRESCRIPTION DRUG MONITORING PROGRAM REVIEWED*: No *COPY OF PRESCRIPTION DRUG MONITORING REPORT IN PATIENT BLACK: No Prescriptions/Med Rec: Enoxaparin Sodium [Lovenox] 40 mg SUBCUT DAILY 4 Days #4 ml Home Medications: Home Meds Allopurinol [Zyloprim] 300 mg PO DAILY 11/07/15 [History] Lovastatin 20 mg PO BEDTIME 11/07/15 [History] metFORMIN [Glucophage] 500 mg PO DAILY 11/07/15 [History] Acetaminophen 650 mg PO TID 09/27/18 [History] Acetaminophen/Diphenhydramine [Tylenol Pm Ex-Strength Caplet] 2 each PO BEDTIME 09/27/18 [History] Ascorbic Acid [Vitamin C] 1,000 mg PO DAILY 09/27/18 [History] Carboxymethylcellulose Sodium [Refresh Tears] 1 drop EYELF Q2H PRN 09/27/18 [ History] Cholecalciferol (Vitamin D3) [Vitamin D3] 4,000 unit PO DAILY 09/27/18 [History] Ferrous Gluconate 324 mg PO BID 09/27/18 [History] Gabapentin [Neurontin] 300 mg PO TID 09/27/18 [History] Hydrocortisone [Proctosol-HC] 1 applic RC BID 09/27/18 [History] Lactobacill 46/B.animal/Inulin [Probiotic-10 10 Bill Cell Cap] 1 each PO DAILY 09/27/18 [History] Sennosides/Docusate Sodium [Senna-S] 1 each PO BEDTIME PRN 09/27/18 [History] Silver Sulfadiazine [Silvadene 1% Cream 20 GM] 1 applic TOP BID 09/27/18 [ History] Triamcinolone Acetonide [Kenalog 0.1% Crm] 1 applic TOP TID 09/27/18 [History] Zinc Gluconate [Zinc] 50 mg PO DAILY 09/27/18 [History] traMADol [Ultram] 50 mg PO QID PRN 09/27/18 [History] Acetaminophen/HYDROcodone [[place] 325-7.5 MG] 1 tab PO Q4H PRN 01/11/19 [History] Acetic Acid [Acetic Acid 0.25%] 5 ml TOP BID 01/11/19 [History] Cranberry Conc/Ascorbic Acid [Cranberry Concentrate Softgel] 1 cap PO DAILY 07/25 [History] Heparin Sodium,Porcine/PF [Heparin Lock Flush 100 Unit/ml] 300 units FLUSH ASDIRECTED 01/11/19 [History] Multivitamin with Minerals [Multivitamins with Minerals] 1 tab PO DAILY [History] guaiFENesin [Mucinex] 600 mg PO BID PRN 01/11/19 [History] Enoxaparin Sodium [Lovenox] 40 mg SUBCUT DAILY 4 Days #4 ml 02/18/19 [Rx] Patient Handouts: Preventing Pressure Injuries, Fall Prevention in Hospitals, Adult, Venous Thromboembolism Prevention - Discharge Summary/Plan Comment DC Time >30 min.: Yes - General Info Date of Service: 02/18/19 - Review of Systems General: Reports: No Symptoms Pulmonary: Reports: No Symptoms Cardiovascular: Reports: No Symptoms Gastrointestinal: Reports: No Symptoms Neurological: Reports: No Symptoms - Patient Data Vitals - Most Recent: Last Vital Signs Temp 97.2 F 02/17/19 08:00 Pulse 88 02/17/19 08:00 Resp 16 02/17/19 08:00 BP 114/79 02/17/19 08:00 Pulse Ox 93 L 02/17/19 08:00 Weight - Most Recent: 320 lb 4 oz I&O - Last 24 hours: Intake & Output 02/17/19 02/18/19 02/18/19 22:59 06:59 14:59 Intake Total 100 Output Total 1550 645 Balance -1450 -645 Lab Results - Last 24 hrs: Laboratory Results - last 24 hr 02/17/19 02/18/19 Range/Units 17:09 07:01 POC Glucose 197 H 143 H (80-116) mg/dL Med Orders - Current: Current Medications Acetaminophen (Tylenol) 650 mg PO TID PRN PRN Reason: mild pain Last Admin: 02/03/19 19:05 Dose: 650 mg Acetaminophen/Diphenhydramine HCl (Tylenol Pm Extra Strength) 2 tab PO BEDTIME [facility] Last Admin: 02/17/19 21:10 Dose: 2 tab Hydrocodone Bitart/Acetaminophen ([place] 325-7.5 Mg) 1 tab PO Q4H PRN PRN Reason: MODERATE PAIN Last Admin: 02/13/19 19:18 Dose: 1 tab Allopurinol (Zyloprim) 300 mg PO DAILY [facility] Last Admin: 02/18/19 08:46 Dose: 300 mg Artificial Tears (Refresh Tears 0.5%) 0 ml EYELF Q2H PRN PRN Reason: Dry Eyes Last Admin: 02/17/19 21:09 Dose: 1 drop Cranberry (Cranberry) 500 mg PO DAILY [facility] Last Admin: 02/18/19 08:45 Dose: 500 mg Enoxaparin Sodium (Lovenox) 40 mg SUBCUT DAILY [facility] Stop: 02/22/19 09:01 Last Admin: 02/18/19 08:46 Dose: 40 mg Ferrous Sulfate (Ferrous Sulfate) 325 mg PO BID [facility] Last Admin: 02/18/19 08:46 Dose: 325 mg Gabapentin (Neurontin) 300 mg PO TID [facility] Last Admin: 02/18/19 08:48 Dose: 300 mg Guaifenesin/Phenylephrine HCl (Robitussin Dm) 10 ml PO Q4H PRN PRN Reason: Cough Heparin Sodium (Porcine) (Heparin Lock Flush 100 Units/Ml) 300 units FLUSH Q8H [facility] Last Admin: 02/18/19 02:28 Dose: Not Given Sodium Chloride (Normal Saline) 250 mls @ 100 mls/hr IV ASDIRECTED [facility] Last Admin: 02/16/19 19:51 Dose: 100 mls/hr Lovastatin (Mevacor) 20 mg PO BEDTIME [facility] Last Admin: 02/17/19 21:09 Dose: 20 mg Metformin HCl (Glucophage) 500 mg PO WITHBREAKFAST [facility] Last Admin: 02/18/19 08:45 Dose: 500 mg Saccharomyces Boulardii (Florastor) 250 mg PO DAILY [facility] Last Admin: 02/18/19 08:46 Dose: 250 mg Senna/Docusate Sodium (Senna Plus) 1 tab PO BEDTIME PRN PRN Reason: Constipation Sodium Chloride (Saline Flush) 10 ml FLUSH ASDIRECTED PRN PRN Reason: FLUSH Last Admin: 02/17/19 15:55 Dose: 10 ml Triamcinolone Acetonide (Triamcinolone Acetonide 0.1% Crm) 0 gm TOP DAILY [facility] Last Admin: 02/17/19 08:56 Dose: 1 applic Triamcinolone Acetonide (Triamcinolone Acetonide 0.1% Crm) 0 gm TOP DAILY PRN PRN Reason: RASH Last Admin: 02/17/19 08:49 Dose: 1 applic Discontinued Medications Acetic Acid (Acetic Acid 0.25%) 1,000 ml IRR BID [facility] Stop: 01/11/19 21:01 Last Admin: 01/11/19 20:56 Dose: 1 applic Ascorbic Acid (Vitamin C) 1,000 mg PO DAILY [facility] Last Admin: 01/21/19 08:09 Dose: 1,000 mg Beta Carotene (A-Low-25) 25,000 units PO DAILY [facility] Last Admin: 01/21/19 08:02 Dose: 25,000 units Cholecalciferol (Vitamin D3) 100 mcg PO DAILY [facility] Last Admin: 01/21/19 08:09 Dose: 100 mcg Guaifenesin (Mucinex) 600 mg PO BID PRN PRN Reason: Cough Last Admin: 01/12/19 21:10 Dose: 600 mg Heparin Sodium (Porcine) (Heparin Lock Flush 100 Units/Ml) 300 units FLUSH STAT ONE Stop: 01/23/19 12:53 Last Admin: 01/23/19 13:28 Dose: 300 units Meropenem 1 gm/ Sodium (Chloride) 100 mls @ 200 mls/hr IV Q8H [facility] Stop: 01/14/19 02:00 Last Admin: 01/14/19 00:05 Dose: 200 mls/hr Meropenem 1 gm/ Sodium (Chloride) 100 mls @ 200 mls/hr IV Q8H [facility] Stop: 02/17/19 23:59 Last Admin: 02/17/19 15:17 Dose: 200 mls/hr Influenza Virus Vaccine (Fluzone Quad [id number] Syringe) 60 mcg IM .ONCE ONE Stop: 01/17/19 09:01 Last Admin: 01/20/19 16:25 Dose: 60 mcg Meropenem (Merrem) 1 gm IV Q8H [facility] Metformin HCl (Glucophage) 500 mg PO ONETIME ONE Stop: 01/11/19 18:57 Last Admin: 01/11/19 20:55 Dose: 500 mg Multivitamins (Thera) 1 each PO DAILY [facility] Last Admin: 01/21/19 08:02 Dose: 1 each Pneumococcal Polyvalent Vaccine (Pneumovax 23) 0.5 ml IM .ONCE ONE Stop: 01/17/19 09:01 Last Admin: 01/20/19 16:20 Dose: 0.5 ml Tramadol HCl (Ultram) 50 mg PO QID PRN PRN Reason: SEVERE PAIN Last Admin: 01/22/19 00:28 Dose: 50 mg Triamcinolone Acetonide (Triamcinolone Acetonide 0.1% Crm) 0 gm TOP DAILY [facility] Stop: 02/01/19 10:00 Last Admin: 02/01/19 08:26 Dose: 1 applic Zinc Sulfate (Zincate) 220 mg PO DAILY [facility] Last Admin: 01/21/19 08:02 Dose: 220 mg - Exam General: Reports: Alert, Oriented, Cooperative, No Acute Distress Lungs: Reports: Clear to Auscultation, Normal Respiratory Effort Cardiovascular: Reports: Regular Rate, Regular Rhythm GI/Abdominal Exam: Normal Bowel Sounds, Soft, Non-Tender, No Distention Wound/Incisions: Reports: Healing Well, No Drainage, Decubitis (healing well, stage 1 decubitus on right posterior leg just under right buttock. Abscess adjacent to colostomy has dressing in place.)
[2019-02-18 13:58] VITALS: BP 134/78; PULSE 84
== END 2019-02-18 12:00 | disposition home health service (06) | DRG 539 ==
LOC: FB.MS 13:12
PROVIDERS: ADMIT Family Medicine; ATTEND Family Medicine
PROC: 0T2BX0Z Change Drainage Device in Bladder, External Approach (ICD-10-PCS; 2019-01-27)
PROC: 30233N1 Transfusion of Nonautologous Red Blood Cells into Peripheral Vein, Percutaneous Approach (ICD-10-PCS; principal; 2019-02-07)
DX: M46.28 Osteomyelitis of vertebra, sacral and sacrococcygeal region (principal); L89.154 Pressure ulcer of sacral region, stage 4; G82.50 Quadriplegia, unspecified; Z68.41 Body mass index [BMI] 40.0-44.9, adult; L03.312 Cellulitis of back [any part except buttock and flank]; D61.818 Other pancytopenia; T83.031A Leakage of indwelling urethral catheter, initial encounter; E11.622 Type 2 diabetes mellitus with other skin ulcer; Z43.3 Encounter for attention to colostomy; E66.9 Obesity, unspecified; E78.00 Pure hypercholesterolemia, unspecified; M10.9 Gout, unspecified; G89.29 Other chronic pain; E78.5 Hyperlipidemia, unspecified; D64.9 Anemia, unspecified; M54.9 Dorsalgia, unspecified; L89.891 Pressure ulcer of other site, stage 1; M70.61 Trochanteric bursitis, right hip; E11.22 Type 2 diabetes mellitus with diabetic chronic kidney disease; G62.9 Polyneuropathy, unspecified; N18.9 Chronic kidney disease, unspecified; N31.9 Neuromuscular dysfunction of bladder, unspecified; H52.4 Presbyopia; H52.00 Hypermetropia, unspecified eye; E66.01 Morbid (severe) obesity due to excess calories; G47.10 Hypersomnia, unspecified; H25.10 Age-related nuclear cataract, unspecified eye; R26.1 Paralytic gait; I12.9 Hypertensive chronic kidney disease with stage 1 through stage 4 chronic kidney disease, or unspecified chronic kidney disease; Z79.84 Long term (current) use of oral hypoglycemic drugs; Z79.899 Other long term (current) drug therapy; Z87.442 Personal history of urinary calculi; Z90.89 Acquired absence of other organs; Z98.890 Other specified postprocedural states; Z87.891 Personal history of nicotine dependence; Z98.1 Arthrodesis status; Z98.52 Vasectomy status
CPT/HCPCS: 36415; 36430; 51702; 80048; 82565; 82962; 83036; 84460; 85025; 85027; 86850; 86900; 86901; 86920; 86922; 90686; 90732; 97166-GO; 97542-GO; A9270-GY; G0283-GO; J1642; J1650; J2185; J7050; P9016

== ENCOUNTER 2019-09-19 17:49 | Observation (INO) | payer MEDICARE, BC ==
--- NOTE | 2019-09-19 17:57 | EDM.PDOC ---
ED HPI GENERAL MEDICAL PROBLEM - General Time Seen by Provider: 09/19/19 17:50 Source of Information: Reports: Patient, Provider History Limitations: Reports: No Limitations - History of Present Illness INITIAL COMMENTS - FREE TEXT/NARRATIVE: Pt sent in by Provider ( Dr Millan in the liver clinic) Pt was seen earlier today for follow up. Labs were drawn : pt had left when test result s returned and pt was noted to be anemic at 4.7 Provider asked pt to come in for a recheck and possible blood transfusion Onset: Today Onset Date: 09/19/19 Duration: Getting Worse Location: Reports: Generalized - Related Data Allergies Allergy/AdvReac Type Severity Reaction Status Date / Time No Known Allergies Allergy Verified 10/15/18 15:47 Home Meds: Home Meds Lovastatin 20 mg PO BEDTIME 11/07/15 [History] allopurinoL [Zyloprim] 300 mg PO DAILY 11/07/15 [History] metFORMIN [Glucophage] 500 mg PO DAILY 11/07/15 [History] Acetaminophen 650 mg PO TID 09/27/18 [History] Acetaminophen/Diphenhydramine [Tylenol Pm Ex-Strength Caplet] 2 each PO BEDTIME 09/27/18 [History] Ascorbic Acid [Vitamin C] 1,000 mg PO DAILY 09/27/18 [History] Carboxymethylcellulose Sodium [Refresh Tears] 1 drop EYELF Q2H PRN 09/27/18 [History] Cholecalciferol (Vitamin D3) [Vitamin D3] 4,000 unit PO DAILY 09/27/18 [History] Ferrous Gluconate 324 mg PO BID 09/27/18 [History] Gabapentin [Neurontin] 300 mg PO TID 09/27/18 [History] Hydrocortisone [Proctosol-HC] 1 applic RC BID 09/27/18 [History] Lactobacill 46/B.animal/Inulin [Probiotic-10 10 Bill Cell Cap] 1 each PO DAILY 09/27/18 [History] Silver Sulfadiazine [Silvadene 1% Cream 20 GM] 1 applic TOP BID 09/27/18 [History] Triamcinolone Acetonide [Kenalog 0.1% Crm] 1 applic TOP TID 09/27/18 [History] traMADol [Ultram] 50 mg PO QID PRN 09/27/18 [History] Acetaminophen/HYDROcodone [Milroy 325-7.5 MG] 1 tab PO Q4H PRN 01/11/19 [History] Acetic Acid [Acetic Acid 0.25%] 5 ml TOP BID 01/11/19 [History] Cranberry Conc/Ascorbic Acid [Cranberry Concentrate Softgel] 1 cap PO DAILY 01/11/19 [History] Multivitamin with Minerals [Multivitamins with Minerals] 1 tab PO DAILY 01/11/19 [History] guaiFENesin [Mucinex] 600 mg PO BID PRN 01/11/19 [History] Enoxaparin Sodium [Lovenox] 40 mg SUBCUT DAILY 4 Days #4 ml 02/18/19 [Rx] Insulin Aspart [NovoLOG] 10 unit SQ TIDMEALS 06/29/19 [History] Insulin Detemir [Levemir] 45 unit SUBCUT DAILY 06/29/19 [History] Omeprazole Magnesium [Prilosec Otc] 20 mg PO DAILY 06/29/19 [History] nadoloL [Corgard] 20 mg PO DAILY 06/29/19 [History] Past Medical History HEENT History: Reports: Other (See Below) Other HEENT History: TINNITUS BILAT EARS Cardiovascular History: Reports: High Cholesterol, Hypertension Respiratory History: Reports: None Gastrointestinal History: Reports: Diverticulosis, GI Bleed Genitourinary History: Reports: Renal Calculus, Renal Disease, Other (See Below) Other Genitourinary History: GROSS HEMATURIA; INFLAMMATION OF URETER DIRECTOR SEARCH History: Reports: None Musculoskeletal History: Reports: Back Pain, Chronic, Gout, Other (See Below) Other Musculoskeletal History: GREATER TROCHANTERIC BURSITIS-RIGHT HIP; DJD, Quadriplegic Neurological History: Reports: Neuropathy, Peripheral Psychiatric History: Reports: None Endocrine/Metabolic History: Reports: Diabetes, Type II, Obesity/BMI 30+ Hematologic History: Reports: Anemia Immunologic History: Reports: None Oncologic (Cancer) History: Reports: None Dermatologic History: Reports: Cellulitis, Eczema - Infectious Disease History Infectious Disease History: Reports: Chicken Pox, Measles, Mumps - Past Surgical History Head Surgeries/Procedures: Reports: None HEENT Surgical History: Reports: Adenoidectomy, Tonsillectomy Cardiovascular Surgical History: Reports: None GI Surgical History: Reports: Colonoscopy, Other (See Below) Other GI Surgeries/Procedures: FISSURECTOMY WO SPHINCTEROTOMY Male Surgical History: Reports: Renal Calculus, TURBT-Transurethral Resection of Bladder Tumor, Vasectomy Neurological Surgical History: Reports: Other (See Below) Other Neurological Surgeries/Procedures: BACK SURGERY; SPINE SURGERY-HERNIATED DISC Social & Family History - Family History Family Medical History: Noncontributory HEENT: Reports: Cataract Cardiac: Reports: Bypass, [place] OBGYN: Reports: Musculoskeletal: Reports: Arthritis Neurological: Reports: Dementia Endocrine/Metabolic: Reports: Diabetes, type II, Hypothyroidism Dermatologic: Reports: None Oncologic: Reports: Bone, Breast, Colon, Hodgkin's Lymphoma, Lung - Caffeine Use Caffeine Use: Reports: Coffee, Tea Other Caffeine Use: coffee- everyday ED ROS GENERAL - Review of Systems Review Of Systems: Comprehensive ROS is negative, except as noted in HPI. ED EXAM, GENERAL - Physical Exam Exam: See Below Exam Limited By: No Limitations General Appearance: Alert, WD/WN, No Apparent Distress Respiratory/Chest: Crackles Cardiovascular: Regular Rate, Rhythm GI/Abdominal: Distended, Abnormal Bowel Sounds Extremities: Pedal Edema Neurological: Sensory/Motor Deficit Psychiatric: Normal Affect, Normal Mood Course - Orders/Labs/Meds Orders: Active Orders 24 hr Category Date Time Status CBC WITH AUTO DIFF [HEME] Stat Lab 09/19/19 18:00 Received Labs: Laboratory Tests 09/19/19 09/19/19 Range/Units 18:00 18:00 PT 11.9 H (9.0-11.1) sec INR 1.11 (1.00-1.24) Sodium 138 (135-145) mmol/L Potassium 3.7 (3.5-5.3) mmol/L Chloride 103 (100-110) mmol/L Carbon Dioxide 27 (21-32) mmol/L BUN 23 H (7-18) mg/dL Creatinine 1.2 (0.70-1.30) mg/dL Est Cr Clr Drug Dosing TNP Estimated GFR (MDRD) > 60 (>60) BUN/Creatinine Ratio 19.2 (9-20) Glucose 191 H (80-116) mg/dL Calcium 8.0 L (8.6-10.2) mg/dL Total Bilirubin 0.5 (0.1-1.3) mg/dL AST 43 H (5-25) IU/L ALT 20 (12-36) U/L Alkaline Phosphatase 100 (56-112) IU/L Total Protein 8.2 H (6.0-8.0) g/dL Albumin 1.6 L* (3.2-4.6) g/dL Globulin 6.6 g/dL Albumin/Globulin Ratio 0.2 - Re-Assessments/Exams Free Text/Narrative Re-Assessment/Exam: 09/19/19 19:12 pt awaiting HGB results Pt signed off to next provider Departure - Departure Time of Disposition: 19:12 Disposition: Admitted As Inpatient 66 Clinical Impression: Anemia - Discharge Information - My Orders Last 24 Hours: My Active Orders 09/19/19 18:00 CBC WITH AUTO DIFF [HEME] Stat - Assessment/Plan Last 24 Hours: My Active Orders 09/19/19 18:00 CBC WITH AUTO DIFF [HEME] Stat
--- NOTE | 2019-09-19 20:28 | PCM.SN.2 ---
- Free Text/Narrative Note: pt signed out at 7p at change of shift by Dr Mckeon, she requested I f/u a repeat hgb that was pending pt had a hgb 4.6, ordered by Francisco GUZMAN, who requested a repeat hgb and transfusion to over 7 pt has chronic anemia of undetermined etiology, w/u including bone marrow bx have been undiagnosed here with last had alcohol 3y ago, very rarely drank when younger pt states he has been on the [employer] board 38y yrs, just retired this yr and his son took over pt received 3u PRBC in May in [place], 2u PRBC here in June, last hgb 8.2 from 6 wks ago at end of July (08-07-19) repeat hgb today is 5.5, which was run in [facility] as our equipment pt notes he has a puffy right hand which is new, no pain, will obtain a venous doppler u/s tomorrow pt to be admitted as a transfusion pt
[2019-09-19] MEDS ORDERED: Acetaminophen 325 MG Tab PO PRN (20:29)
[2019-09-19] MEDS ORDERED: Non-Formulary Medication 1 Each (Tramadol [Ultram] 50 MG) PO PRN (20:45)
[2019-09-19] MEDS ORDERED: Enoxaparin 40 MG/0.4 ML Syringe SUBCUT SCH (21:00)
[2019-09-19] MEDS ORDERED: Non-Formulary Medication 1 Each (Gabapentin [Neurontin] 300 MG) PO SCH (21:00)
[2019-09-19] MEDS ORDERED: LOVASTATIN 20 MG PO SCH (21:00)
[2019-09-19] MEDS ORDERED: Non-Formulary Medication 1 Each (Ferrous Gluconate [Ferrous Gluconate] 324 MG) PO SCH (21:00)
[2019-09-19] MEDS: Sodium Chloride 0.9% 250 ML IV SCH (21:43)
[2019-09-20] MEDS: Sodium Chloride 0.9% 250 ML IV SCH (00:48)
[2019-09-20] MEDS ORDERED: Furosemide 20 MG/2 ML VIAL IVPUSH ONE (07:18)
[2019-09-20] MEDS ORDERED: Sodium Chloride 0.9% 10 ML Syringe FLUSH PRN (07:20)
--- NOTE | 2019-09-20 08:59 | PCM.HP.2 ---
H&P History of Present Illness - General Date of Service: 09/20/19 Admit Problem/Dx: Admission Diagnosis/Problem Admission Diagnosis/Problem Anemia Source of Information: Patient History Limitations: Reports: No Limitations - History of Present Illness Initial Comments - Free Text/Narative: Reji is a 69-year-old male was admitted with a critically low hemoglobin 5.5. He has known to have nonalcoholic liver cirrhosis,with Portal HTN, with GAVE causing GI bleed from time to time in past, although he complained of no recent overt bleeding. He however,did complain of feeling weak and tired. He has other medical problems that are stable including type 2 diabetes, obesity, hydronephrosis the kidney, it fibrillation, and is being followed up by his PCP along with a host of other medical specialists.His last HGB was 8 in July - Related Data Allergies/Adverse Reactions: Allergies Allergy/AdvReac Type Severity Reaction Status Date / Time No Known Allergies Allergy Verified 10/15/18 15:47 Home Medications: Home Meds Lovastatin 20 mg PO BEDTIME 11/07/15 [History] allopurinoL [Zyloprim] 300 mg PO DAILY 11/07/15 [History] Acetaminophen 650 mg PO TID 09/27/18 [History] Acetaminophen/Diphenhydramine [Tylenol Pm Ex-Strength Caplet] 2 each PO BEDTIME 09/27/18 [History] Carboxymethylcellulose Sodium [Refresh Tears] 1 drop EYELF Q2H PRN 09/27/18 [History] Ferrous Gluconate 324 mg PO BID 09/27/18 [History] Gabapentin [Neurontin] 300 mg PO TID 09/27/18 [History] Hydrocortisone [Proctosol-HC] 1 applic RC BID PRN 09/27/18 [History] Triamcinolone Acetonide [Kenalog 0.1% Crm] 1 applic TOP TID 09/27/18 [History] traMADol [Ultram] 50 mg PO QID PRN 09/27/18 [History] Cranberry Conc/Ascorbic Acid [Cranberry Concentrate Softgel] 1 cap PO DAILY 01/11/19 [History] Multivitamin with Minerals [Multivitamins with Minerals] 1 tab PO DAILY 01/11/19 [History] Insulin Detemir [Levemir] 45 unit SUBCUT DAILY 06/29/19 [History] Omeprazole Magnesium [Prilosec Otc] 20 mg PO DAILY 06/29/19 [History] Past Medical History HEENT History: Reports: Other (See Below) Other HEENT History: TINNITUS BILAT EARS Cardiovascular History: Reports: High Cholesterol, Hypertension Respiratory History: Reports: None Gastrointestinal History: Reports: Diverticulosis, GI Bleed Genitourinary History: Reports: Renal Calculus, Renal Disease, Other (See Below) Other Genitourinary History: GROSS HEMATURIA; 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 History: Reports: None Musculoskeletal History: Reports: Back Pain, Chronic, Gout, Other (See Below) Other Musculoskeletal History: GREATER TROCHANTERIC BURSITIS-RIGHT HIP; DJD, Quadriplegic Neurological History: Reports: Neuropathy, Peripheral Psychiatric History: Reports: None Endocrine/Metabolic History: Reports: Diabetes, Type II, Obesity/BMI 30+ Hematologic History: Reports: Anemia Immunologic History: Reports: None Oncologic (Cancer) History: Reports: None Dermatologic History: Reports: Cellulitis, Eczema - Infectious Disease History Infectious Disease History: Reports: Chicken Pox, Measles, Mumps - Past Surgical History Head Surgeries/Procedures: Reports: None HEENT Surgical History: Reports: Adenoidectomy, Tonsillectomy Cardiovascular Surgical History: Reports: None GI Surgical History: Reports: Colonoscopy, Other (See Below) Other GI Surgeries/Procedures: FISSURECTOMY WO SPHINCTEROTOMY Male Surgical History: Reports: Renal Calculus, TURBT-Transurethral Resection of Bladder Tumor, Vasectomy Neurological Surgical History: Reports: Other (See Below) Other Neurological Surgeries/Procedures: BACK SURGERY; SPINE SURGERY-HERNIATED DISC Social & Family History - Family History Family Medical History: Noncontributory HEENT: Reports: Cataract Cardiac: Reports: Bypass, [place] OBGYN: Reports: Musculoskeletal: Reports: Arthritis Neurological: Reports: Dementia Endocrine/Metabolic: Reports: Diabetes, type II, Hypothyroidism Dermatologic: Reports: None Oncologic: Reports: Bone, Breast, Colon, Hodgkin's Lymphoma, Lung - Tobacco Use Smoking Status *Q: Never Smoker Second Hand Smoke Exposure: No - Caffeine Use Caffeine Use: Reports: None Other Caffeine Use: coffee- everyday - Recreational Drug Use Recreational Drug Use: No H&P Review of Systems - Review of Systems: Review Of Systems: Comprehensive ROS is negative, except as noted in HPI. Exam - Exam Exam: See Below - Vital Signs Vital Signs: Last Vital Signs Temp 97.8 F 07/14/20 05:00 Pulse 92 09/20/19 05:00 Resp 18 09/20/19 05:00 BP 114/72 09/20/19 05:00 Pulse Ox 99 09/20/19 05:00 Weight: 147.418 kg - Exam General: Alert HEENT: PERRLA Neck: Supple Lungs: Clear to Auscultation Cardiovascular: Irregular Rhythm GI/Abdominal Exam: Normal Bowel Sounds, Soft Extremities: Pallor, Other (Left upper ext swelling) Skin: Warm Neurological: Cranial Nerves Intact Neuro Extensive - Mental Status: Alert, Oriented x3 Psychiatric: Alert, Normal Affect - Patient Data Lab Results Last 24 hrs: Laboratory Results - last 24 hr 09/19/19 09/19/19 09/19/19 Range/Units 18:00 18:00 18:00 WBC 4.5 (4.5-12.0) X10-3/uL RBC 2.05 L (4.30-5.75) x10(6)uL Hgb 5.5 L* D (13.5-17.8) g/dL Hct 19.4 L* D (30.0-51.3) % MCV 94.6 (80-96) fL MCH 26.8 L (27.7-33.6) pg MCHC 28.4 L (32.2-35.4) g/dL RDW 19.8 H (11.5-15.5) % Plt Count 168 (125-369) X10(3)uL MPV 12.5 H (7.4-10.4) fL Neut % (Auto) 74.0 (46-82) % Lymph % (Auto) 14.1 (13-37) % [place]upe % (Auto) 11.0 (4-12) % Eos % (Auto) 1 (1.0-5.0) % Baso % (Auto) 0 (0-2) % Neut # (Auto) 3.3 (1.6-8.3) # Lymph # (Auto) 0.6 (0.6-5.0) # [place] # (Auto) 0.5 (0.0-1.3) # Eos # (Auto) 0.0 (0.0-0.8) # Baso # (Auto) 0.0 (0.0-0.2) # PT 11.9 H (9.0-11.1) sec INR 1.11 (1.00-1.24) Sodium 138 (135-145) mmol/L Potassium 3.7 (3.5-5.3) mmol/L Chloride 103 (100-110) mmol/L Carbon Dioxide 27 (21-32) mmol/L BUN 23 H (7-18) mg/dL Creatinine 1.2 (0.70-1.30) mg/dL Est Cr Clr Drug Dosing TNP Estimated GFR (MDRD) > 60 (>60) BUN/Creatinine Ratio 19.2 (9-20) Glucose 191 H (80-116) mg/dL Calcium 8.0 L (8.6-10.2) mg/dL Total Bilirubin 0.5 (0.1-1.3) mg/dL AST 43 H (5-25) IU/L ALT 20 (12-36) U/L Alkaline Phosphatase 100 (56-112) IU/L Total Protein 8.2 H (6.0-8.0) g/dL Albumin 1.6 L* (3.2-4.6) g/dL Globulin 6.6 g/dL Albumin/Globulin Ratio 0.2 Blood Type Gel Antibody Screen Crossmatch 09/19/19 09/19/19 Range/Units 18:00 18:00 WBC (4.5-12.0) X10-3/uL RBC (4.30-5.75) x10(6)uL Hgb (13.5-17.8) g/dL Hct (30.0-51.3) % MCV (80-96) fL MCH (27.7-33.6) pg MCHC (32.2-35.4) g/dL RDW (11.5-15.5) % Plt Count (125-369) X10(3)uL MPV (7.4-10.4) fL Neut % (Auto) (46-82) % Lymph % (Auto) (13-37) % [place] % (Auto) (4-12) % Eos % (Auto) (1.0-5.0) % Baso % (Auto) (0-2) % Neut # (Auto) (1.6-8.3) # Lymph # (Auto) (0.6-5.0) # [place] # (Auto) (0.0-1.3) # Eos # (Auto) (0.0-0.8) # Baso # (Auto) (0.0-0.2) # PT (9.0-11.1) sec INR (1.00-1.24) Sodium (135-145) mmol/L Potassium (3.5-5.3) mmol/L Chloride (100-110) mmol/L Carbon Dioxide (21-32) mmol/L BUN (7-18) mg/dL Creatinine (0.70-1.30) mg/dL Est Cr Clr Drug Dosing Estimated GFR (MDRD) (>60) BUN/Creatinine Ratio (9-20) Glucose (80-116) mg/dL Calcium (8.6-10.2) mg/dL Total Bilirubin (0.1-1.3) mg/dL AST (5-25) IU/L ALT (12-36) U/L Alkaline Phosphatase (56-112) IU/L Total Protein (6.0-8.0) g/dL Albumin (3.2-4.6) g/dL Globulin g/dL Albumin/Globulin Ratio Blood Type A POSITIVE Gel Antibody Screen Negative Crossmatch See Detail See Detail Result Diagrams: 09/19/19 18:00 09/19/19 18:00 Sepsis Event Note - Evaluation Sepsis Screening Result: No Definite Risk - Focused Exam Vital Signs: Vital Signs Temp Temp Pulse Resp BP Pulse Ox 09/20/19 05:00 98 F 97.8 F 92 18 114/72 99 09/20/19 04:00 98.1 F 89 16 118/52 L 99 09/20/19 02:30 98.1 F 88 16 120/78 99 09/20/19 01:37 98.1 F 91 16 111/62 99 09/20/19 01:22 97.4 F 89 16 112/64 98 09/20/19 01:07 97.4 F 92 16 110/62 98 09/20/19 00:42 98 F 84 16 112/64 99 09/20/19 00:29 97.4 F 85 16 114/62 99 09/20/19 00:25 98.1 F 85 16 110/62 99 09/19/19 23:00 98.2 F 86 16 110/56 L 99 09/19/19 22:36 98.2 F 82 16 112/55 L 99 09/19/19 22:21 98.4 F 81 16 114/56 L 99 09/19/19 22:06 98.4 F 80 16 114/64 99 09/19/19 21:57 98.4 F 80 16 112/62 99 09/19/19 21:26 98.2 F 86 18 112/56 L 99 Date Exam was Performed: 09/20/19 Time Exam was Performed: 08:54 - Problem List (1) Anemia SNOMED Code(s): 335342206 ICD Code: D64.9 - ANEMIA, UNSPECIFIED Status: Acute Current Visit: No Qualifiers: Anemia type: unspecified type Qualified Code(s): D64.9 - Anemia, unspecified (2) GAVE (gastric antral vascular ectasia) SNOMED Code(s): 43370560 ICD Code: K31.819 - ANGIODYSPLASIA OF STOMACH AND DUODENUM WITHOUT BLEEDING Status: Chronic Current Visit: Yes (3) Paraplegic gait SNOMED Code(s): 673192798 ICD Code: R26.1 - PARALYTIC GAIT Status: Chronic Current Visit: No (4) Hypertension SNOMED Code(s): 85707886 ICD Code: I10 - ESSENTIAL (PRIMARY) HYPERTENSION Status: Chronic Current Visit: No Qualifiers: Hypertension type: essential hypertension Qualified Code(s): I10 - Essential (primary) hypertension (5) Obesity SNOMED Code(s): 304160992, 540371704 ICD Code: E66.9 - OBESITY, UNSPECIFIED Status: Chronic Current Visit: No Qualifiers: Obesity type: due to excess calories (6) Type 2 diabetes mellitus SNOMED Code(s): 36622044 ICD Code: E11.9 - TYPE 2 DIABETES MELLITUS WITHOUT COMPLICATIONS Status: Chronic Current Visit: No (7) Afib SNOMED Code(s): 85224744 ICD Code: I48.91 - UNSPECIFIED ATRIAL FIBRILLATION Status: Acute Current Visit: Yes Problem List Initiated/Reviewed/Updated: Yes Orders Last 24hrs: Active Orders 24 hr Category Date Time Status Admission Status [Patient Status] [ADT] Routine ADT 09/19/19 20:20 Active Oxygen Therapy [RC] PRN Care 09/19/19 20:29 Active VTE/DVT Education [RC] Per Unit Routine Care 09/19/19 20:29 Active Vital Signs [RC] Q4H Care 09/19/19 20:29 Active Consistent Carbohydrate Diet [DIET] Diet 09/20/19 Breakfast Active VL Duplex Upr Ext Veins Ltd Rt [US] Routine Exams 09/19/19 20:29 Ordered CBC WITH AUTO DIFF [HEME] Stat Lab 09/20/19 08:30 Received Acetaminophen [Tylenol] Med 09/19/19 20:29 Active 650 mg PO Q4H PRN Acetaminophen/Diphenhydramine [Tylenol Pm Ex-Strength Med 09/19/19 21:00 Ordered Caplet] 2 each PO BEDTIME Cranberry Conc/Ascorbic Acid [Cranberry Concentrate Med 09/20/19 09:00 Ordered Softgel] 1 cap PO DAILY Enoxaparin [Lovenox] Med 09/19/19 21:00 Active 40 mg SUBCUT Q24H Ferrous Gluconate [Ferrous Gluconate] Med 09/19/19 21:00 Ordered 324 mg PO BID Gabapentin [Neurontin] Med 09/19/19 21:00 Ordered 300 mg PO TID Insulin Detemir [Levemir] Med 09/20/19 09:00 Ordered 45 unit SUBCUT DAILY Lovastatin [Lovastatin] Med 09/19/19 21:00 Ordered 20 mg PO BEDTIME Multivitamin with Minerals [Multivitamins with Minerals Med 09/20/19 09:00 Ordered ] 1 tab PO DAILY Omeprazole Magnesium [Prilosec Otc] Med 09/20/19 09:00 Ordered 20 mg PO DAILY Sodium Chloride 0.9% [Normal Saline] 250 ml Med 09/19/19 20:45 Active IV ASDIRECTED Sodium Chloride 0.9% [Saline Flush] Med 09/20/19 07:20 Active 10 ml FLUSH ASDIRECTED PRN allopurinoL [Zyloprim] Med 09/20/19 09:00 Pending 300 mg PO DAILY traMADol [Ultram] Med 09/19/19 20:45 Ordered 50 mg PO QID PRN Transfuse PRBC [Transfuse Red Blood Cells] [COMM] Stat Oth 09/19/19 20:44 Ord ered Resuscitation Status Routine Resus Stat 09/19/19 20:29 Ordered Medication Orders Acetaminophen (Tylenol) 650 mg PO Q4H PRN PRN Reason: Pain (Mild 1-3)/fever Enoxaparin Sodium (Lovenox) 40 mg SUBCUT Q24H [facility] Last Admin: 09/19/19 23:05 Dose: 40 mg Documented by: LATRELL Sodium Chloride (Normal Saline) 250 mls @ 100 mls/hr IV ASDIRECTED [facility] Last Admin: 09/20/19 00:48 Dose: 100 mls/hr Documented by: Admin: 09/19/19 21:43 Dose: 100 mls/hr Documented by: LATRELL Non-Formulary Medication (Allopurinol [Zyloprim]) 300 mg PO DAILY ROBERTO Non-Formulary Medication (Tramadol [Ultram]) 50 mg PO QID PRN PRN Reason: SEVERE PAIN Non-Formulary Medication (Omeprazole Magnesium [Prilosec Otc]) 20 mg PO DAILY ROBERTO Non-Formulary Medication (Multivitamin With Minerals [Multivitamins With Minerals]) 1 tab PO DAILY ROBERTO Non-Formulary Medication (Lovastatin [Lovastatin]) 20 mg PO BEDTIME ROBERTO Non-Formulary Medication (Insulin Detemir [Levemir]) 45 unit SUBCUT DAILY ROBERTO Non-Formulary Medication (Gabapentin [Neurontin]) 300 mg PO TID ROBERTO Non-Formulary Medication (Ferrous Gluconate [Ferrous Gluconate]) 324 mg PO BID ROBERTO Non-Formulary Medication (Cranberry Conc/Ascorbic Acid [Cranberry Concentrate Softgel]) 1 cap PO DAILY ROBERTO Non-Formulary Medication (Acetaminophen/Diphenhydramine [Tylenol Pm Ex-Strength Caplet]) 2 each PO BEDTIME ROBERTO Sodium Chloride (Saline Flush) 10 ml FLUSH ASDIRECTED PRN PRN Reason: Keep Vein Open Assessment/Plan Comment:: Reji received 2 units of PRBCs last night. The plan is to obtain a repeat hemoglobin, and an ultrasound of the left upper extremity today then discharged home to continue follow-up with his PCP.
[2019-09-20] MEDS ORDERED: [UNRECOGNIZED DRUG - OTHER] PO SCH (09:00)
[2019-09-20] MEDS ORDERED: CRANBERRY PO SCH (09:00)
[2019-09-20] MEDS ORDERED: ASCORBIC ACID PO SCH (09:00)
[2019-09-20] MEDS ORDERED: INSULIN DETEMIR 45 UNIT SUBCUT SCH (09:00)
[2019-09-20] MEDS ORDERED: Non-Formulary Medication 1 Each (Omeprazole Magnesium [Prilosec Otc] 20 MG) PO SCH (09:00)
[2019-09-20 09:55] VITALS: BP 130/71; PULSE 74
== END 2019-09-20 10:25 | disposition home or self-care (01) ==
LOC: FB.ED 17:49 → FB.MS 20:26
PROVIDERS: ADMIT Emergency Medicine; ATTEND Family Medicine
DX: D64.9 Anemia, unspecified (principal); K31.819 Angiodysplasia of stomach and duodenum without bleeding; R26.1 Paralytic gait; I10 Essential (primary) hypertension; E11.9 Type 2 diabetes mellitus without complications; I48.91 Unspecified atrial fibrillation; E78.00 Pure hypercholesterolemia, unspecified; E66.09 Other obesity due to excess calories; K74.60 Unspecified cirrhosis of liver; K76.6 Portal hypertension; Z79.899 Other long term (current) drug therapy; Z68.41 Body mass index [BMI] 40.0-44.9, adult
CPT/HCPCS: 36415; 36430; 80053; 85025; 85610; 86850; 86900; 86901; 86920; 86922; 96372; 96374; 99284; G0378; J1650; J1940; J7050; P9016